=== PATIENT | male | born 1960 | race Two or more races ===

== ENCOUNTER 2018-07-26 22:18 | Emergency (ER) | payer OTHER ==
[~2018-07-26] VITALS: Ht 172.7 cm; Wt 89.4 kg
--- NOTE | 2018-07-26 22:30 | NUR ---
ADMITTED TO ER-RM 1A VIA EMERGENCY R MEDICAL RESPONSE S/P WITNESSED SEIZURE. SEIZURE PRECAUTION APPLIED ON BOTH SIDERAILS. DR MANCIA CAME & EVALUATED PT. W/ ORDERS.
[2018-07-26] MEDS ORDERED: ATOR80TA PO (22:36)
[2018-07-26] MEDS ORDERED: LAMO150T PO (22:36)
[2018-07-26] MEDS ORDERED: [UNRECOGNIZED DRUG - CODE] PO (22:36)
[2018-07-26] MEDS ORDERED: ZONI100C42 PO ×2 (22:36)
[2018-07-26] MEDS ORDERED: CLON1TAB PO (22:36)
[2018-07-26] MEDS ORDERED: DOCU-141 PO (22:39)
[2018-07-26] MEDS ORDERED: HYDR5TAB PO (22:39)
[2018-07-26] MEDS ORDERED: ASPI81TA31 PO (22:39)
[2018-07-26] MEDS ORDERED: HYDR10TA PO (22:39)
[2018-07-26] MEDS ORDERED: IBUP-1955 PO (22:39)
[2018-07-26] MEDS ORDERED: MECL12.582 PO (22:39)
[2018-07-26 23:21] LABS: BASOPHILS % (AUTO) 0.4 % (0.0-2.0); EOSINOPHILS # (AUTO) 0.1 K/uL (0.0-0.7); EOSINOPHILS % (AUTO) 1.1 % (0.0-7.0); HEMATOCRIT 43.2 % (36.7-47.1); LYMPHOCYTES % (AUTO) 14.1 % (20.5-51.5); MEAN CORPUSCULAR HEMOGLOBIN 32.4 uug (23.8-33.4); MEAN CORPUSCULAR HGB CONC 35 g/dL (32.5-36.3); MEAN CORPUSCULAR VOLUME 93.3 fL (73.0-96.2); MONOCYTES # (AUTO) 0.6 K/uL (2.0-10.0); MONOCYTES % (AUTO) 8.8 % (0.0-11.0); NEUTROPHILS # (AUTO) 5.1 K/uL (1.8-8.9); NEUTROPHILS % (AUTO) 75.6 % (38.5-71.5); PLATELET COUNT (AUTO) 82 K/uL (152-348); RED BLOOD CELL COUNT(AUTO) 4.63 MIL/uL (4.06-5.63); WHITE BLOOD COUNT (AUTO) 6.7 K/uL (3.6-10.2)
[2018-07-26 23:22] LABS: CREATININE 1.5 mg/dL (0.6-1.3); POTASSIUM 4.3 mmol/L (3.5-5.1)
[2018-07-26 23:28] LABS: BILIRUBIN,DIRECT 0.1 mg/dL (0.0-0.2); BILIRUBIN,TOTAL 0.4 mg/dL (0.2-1.0); TOTAL PROTEIN, SERUM 7.2 g/dL (6.4-8.2)
[2018-07-27] MEDS ORDERED: DEXAMETHASONE SOD PHOSPHATE 10 MG INJ IV ONE (00:45)
[2018-07-27] MEDS ORDERED: VANCOMYCIN IV 200 ML IV ONE (00:45)
[2018-07-27] MEDS ORDERED: CEFTRIAXONE 2 G in IV DEXTROSE 5% 100 ML IV ONE (00:45)
[2018-07-27] MEDS ORDERED: LORAZEPAM 2 MG/1 ML VIAL ONE (00:50)
[2018-07-27] MEDS ORDERED: CEFTRIAXONE 1 G VIAL ONE (00:54)
--- NOTE | 2018-07-27 00:55 | NUR ---
LUMBAR PUNCTURE DONE & SENT SPECIMEN TO LAB.
[2018-07-27] MEDS ORDERED: DEXAMETHASONE SOD PHOSPHATE 10 MG INJ ONE (00:57)
--- NOTE | 2018-07-27 00:58 | NUR ---
Called [facility]anny for kit
[2018-07-27] MEDS ORDERED: LORAZEPAM 2 MG/1 ML VIAL IV ONE (01:00)
[2018-07-27] MEDS ORDERED: VANCOMYCIN IV 200 ML ONE (01:05)
[2018-07-27 02:19] LABS: CSF GLUCOSE 56 mg/dL (40-70); CSF PROTEIN 64 mg/dL (15-45)
[2018-07-27] MEDS ORDERED: LIDOCAINE 2% (UROJET) 10 ML JELLY MM ONE ×2 (02:21→03:45)
[2018-07-27 03:33] LABS: *BILIRUBIN,URIN NEGATIVE (NEGATIVE); *BLOOD, URINE Trace-intact (NEGATIVE); *CLARITY,URINE CLEAR (CLEAR); *COLOR,URINE YELLOW (YELLOW); *KETONES,URINE NEGATIVE (NEGATIVE); *UROBILINOGEN,URINE 0.2 E.U./dl (NORMAL); LEUKOCYTE ESTERASE ,URINE NEGATIVE (NEGATIVE); NITRITE, URINE NEGATIVE (NEGATIVE); PH,URINE 7.5 (5.0-8.0); UGLUCOSE NEGATIVE (NEGATIVE)
[2018-07-27 03:40] LABS: BACTERIA,URINE NONE SEEN /HPF (NONE SEEN); SQUAMOUS EPITHELIAL CELL,UR FEW /HPF (NONE SEEN); WBC,URINE 0-3 /HPF (0-3)
[2018-07-27 03:41] LABS: SPERM,URINE MANY /HPF (NONE SEEN)
[2018-07-27 03:45] LABS: *AMPHETAMINE, URINE NEGATIVE (NEGATIVE); *BARBITURATE, URINE NEGATIVE (NEGATIVE); *CANNABINOID, URINE NEGATIVE (NEGATIVE); *COCCAINE, URINE NEGATIVE (NEGATIVE); *OPIATE, URINE NEGATIVE (NEGATIVE); *PHENCYCLIDINE SCREEN,URINE NEGATIVE (NEGATIVE)
--- NOTE | 2018-07-27 03:51 | NUR ---
ABDALLA CATH INSERTED ASEPTICALLY W/ FR. # 18 W/ CLEAR URINE OUTPUT. SPECIMEN SENT TO LAB.
--- NOTE | 2018-07-27 04:10 | NUR ---
TEMP-100.8 ORALLY, TYLENOL 650 MG PO GIVEN ORDERED.
[2018-07-27] MEDS ORDERED: ACETAMINOPHEN 325 MG TABLET ONE (04:13)
[2018-07-27] MEDS ORDERED: ACETAMINOPHEN 325 MG TABLET PO ONE (04:15)
--- NOTE | 2018-07-27 04:25 | NUR ---
REPORT GIVEN TO SEMAJ ARVIZU RN, [facility], RM [phone].
--- NOTE | 2018-07-27 04:40 | NUR ---
TRANSFERED & DISCHARGED TO [facility] VIA [facility].
== END 2018-07-27 04:40 | disposition short-term general hospital (02) ==
LOC: ER 22:23
DX: R56.00 Simple febrile convulsions (principal); E78.5 Hyperlipidemia, unspecified; Z79.1 Long term (current) use of non-steroidal anti-inflammatories (NSAID); Z79.82 Long term (current) use of aspirin; Z79.899 Other long term (current) drug therapy
CPT/HCPCS: 36415 ×2; 62270; 70450; 71045; 80048; 80076; 80307; 81001; 82945; 82962; 83605; 84157; 85025; 85730; 87040 ×2; 87086; 87400; 89051; 93005; 96365; 96375; 99285; J0696; J1100; J2060; J3370; A4663; J3490

== ENCOUNTER 2018-09-03 08:15 | Emergency (ER) | payer OTHER ==
[~2018-09-03] VITALS: Ht 175.3 cm; Wt 79.4 kg
[~2018-09-03 08:15] MED LIST: ASPI81TA31 PO; ATOR80TA PO; CLON1TAB PO; DOCU-141 PO; HYDR10TA PO; HYDR5TAB PO; IBUP-1955 PO; LAMO150T PO; MECL12.582 PO; ZONI100C42 PO; [UNRECOGNIZED DRUG - CODE] PO
--- NOTE | 2018-09-03 08:24 | NUR ---
NO MED LIST/HX INFO SENT W/ PT.
[2018-09-03] MEDS ORDERED: IV NORMAL SALINE 1000 ML BAG IV ONE (08:30)
--- NOTE | 2018-09-03 08:30 | NUR ---
PATIENT IS AWAKE, ALERT, ORIENTED X4. HE HAS A COUGH. PLACED ON A MONITOR.
[2018-09-03 08:47] LABS: BASOPHILS % (AUTO) 0.4 % (0.0-2.0); EOSINOPHILS # (AUTO) 0.1 K/uL (0.0-0.7); EOSINOPHILS % (AUTO) 1.2 % (0.0-7.0); HEMATOCRIT 36.5 % (36.7-47.1); HEMOGLOBIN 12.4 g/dL (12.5-16.3); LYMPHOCYTES # (AUTO) 0.9 K/uL (20.0-40.0); LYMPHOCYTES % (AUTO) 13.5 % (20.5-51.5); MEAN CORPUSCULAR HEMOGLOBIN 31.5 uug (23.8-33.4); MEAN CORPUSCULAR HGB CONC 34 g/dL (32.5-36.3); MEAN CORPUSCULAR VOLUME 92.6 fL (73.0-96.2); MONOCYTES # (AUTO) 0.6 K/uL (2.0-10.0); MONOCYTES % (AUTO) 9.8 % (0.0-11.0); NEUTROPHILS # (AUTO) 4.8 K/uL (1.8-8.9); NEUTROPHILS % (AUTO) 75.1 % (38.5-71.5); PLATELET COUNT (AUTO) 65 K/uL (152-348); RED BLOOD CELL COUNT(AUTO) 3.94 MIL/uL (4.06-5.63); WHITE BLOOD COUNT (AUTO) 6.4 K/uL (3.6-10.2)
[2018-09-03 08:56] LABS: CREATININE 1.4 mg/dL (0.6-1.3); POTASSIUM 3.9 mmol/L (3.5-5.1)
[2018-09-03 09:05] LABS: LYMPHOCYTES % (MANUAL) 14 % (20-40); MONOCYTES % (MANUAL) 10 % (2-10); NEUTROPHILS % (MANUAL) 76 % (42-75)
[2018-09-03 09:09] LABS: BILIRUBIN,DIRECT 0.2 mg/dL (0.0-0.2); BILIRUBIN,TOTAL 0.5 mg/dL (0.2-1.0); TOTAL PROTEIN, SERUM 7.1 g/dL (6.4-8.2)
--- NOTE | 2018-09-03 09:15 | NUR ---
PATIENT IS AWAKE AND ALERT. AWAITING TEST RESULTS.
[2018-09-03] MEDS ORDERED: PIPERACILLIN SODIUM/TAZOBACTAM 3.375 G in IV DEXTROSE 5% 50 ML IV ONE (09:30)
[2018-09-03] MEDS ORDERED: AZITHROMYCIN IV 500 MG in IV DEXTROSE 5% 250 ML IV ONE (09:30)
[2018-09-03] MEDS ORDERED: PIPERACILLIN/TAZOBACTAM/D5W 50 ML IV ONE (09:45)
[2018-09-03] MEDS ORDERED: AZITHROMYCIN 500 MG VIAL IV ONE (10:16)
--- NOTE | 2018-09-03 10:35 | NUR ---
AWAITING TO HEAR FROM PATIENTS INSURANCE TO VERIFY (ADMISSION) HOSPITAL
--- NOTE | 2018-09-03 11:00 | NUR ---
PER INSURANCE, PATIENT TO GO TO [facility]. REPORT GIVEN TO SHIVA HUFF AT [facility]. PATIENT AWARE OF PENDING TRANSFER.
--- NOTE | 2018-09-03 12:04 | NUR ---
[facility] STAFF HERE TO TRANSPORT PATIENT TO [facility]. ALL COPIES OF TEST RESULTS AND MEDICATION ADMINISTRATION GIVEN. PATIENT IS AWAKE AND ALERT IN NO DISTRESSS. VITAL SIGNS STABLE AT [place].
== END 2018-09-03 12:19 | disposition short-term general hospital (02) ==
LOC: ER 08:15
DX: J18.9 Pneumonia, unspecified organism (principal); E78.5 Hyperlipidemia, unspecified; Z79.82 Long term (current) use of aspirin; Z79.1 Long term (current) use of non-steroidal anti-inflammatories (NSAID); Z79.899 Other long term (current) drug therapy; Y95 Nosocomial condition
CPT/HCPCS: 36415; 71045; 80048; 80076; 83605; 83880; 84484; 85025; 87040; 87400; 93005; 96365; 96366; 96367; 99285; J0456; J2543; 70030-TC; A4663; J7030; J7050

== ENCOUNTER 2019-07-30 21:30 | Inpatient (IN) | payer MEDICAID, OTHER ==
[~2019-07-30] VITALS: Ht 175.3 cm; Wt 74.4 kg
[2019-07-30] MEDS ORDERED: NOREPINEPHRINE BITARTRATE 4 MG/4 ML VIAL IV ONE ×2 (21:57→22:09)
--- NOTE | 2019-07-30 22:00 | NUR ---
Jin bautista in EDM - 07/31/19 at 0318 by BPARENTELA Levophed 8mg started on right groin central line. started at 2mcg/min. Titrated to 14mcg/min per protocol
--- NOTE | 2019-07-30 22:13 | NUR ---
CENTRAL LINE INITIATED BY ERMD, STERILE TECHNIQUE LEVOPHED DERIP STARTED
--- NOTE | 2019-07-30 22:20 | NUR ---
Levophed 8mg started on right groin central line. started at 2mcg/min. Titrated to 14mcg/min per protocol
[2019-07-30 22:26] LABS: CREATININE 3.5 mg/dL (0.6-1.3)
[2019-07-30] MEDS ORDERED: PIPERACILLIN SODIUM/TAZOBACTAM 3.375 G in IV DEXTROSE 5% 50 ML IV ONE (22:30)
[2019-07-30] MEDS ORDERED: IV NORMAL SALINE 1000 ML BAG IV ONE (22:30)
[2019-07-30 22:31] LABS: POTASSIUM 2.9 mmol/L (3.5-5.1)
[2019-07-30 22:32] LABS: BASOPHILS % (AUTO) 0.2 % (0.0-2.0); HEMATOCRIT 40.3 % (36.7-47.1); HEMOGLOBIN 13.8 g/dL (12.5-16.3); LYMPHOCYTES # (AUTO) 1.2 K/uL (20.0-40.0); LYMPHOCYTES % (AUTO) 8.2 % (20.5-51.5); MEAN CORPUSCULAR HEMOGLOBIN 32.8 uug (23.8-33.4); MEAN CORPUSCULAR HGB CONC 34 g/dL (32.5-36.3); MEAN CORPUSCULAR VOLUME 95.4 fL (73.0-96.2); MONOCYTES % (AUTO) 6.8 % (0.0-11.0); NEUTROPHILS # (AUTO) 12.5 K/uL (1.8-8.9); NEUTROPHILS % (AUTO) 84.8 % (38.5-71.5); PLATELET COUNT (AUTO) 59 K/uL (152-348); RED BLOOD CELL COUNT(AUTO) 4.22 MIL/uL (4.06-5.63); WHITE BLOOD COUNT (AUTO) 14.7 K/uL (3.6-10.2)
[2019-07-30 22:37] LABS: BILIRUBIN,DIRECT 0.4 mg/dL (0.0-0.2); BILIRUBIN,TOTAL 1.4 mg/dL (0.1-1.0)
--- NOTE | 2019-07-30 22:40 | NUR ---
CALLED [facility] FOR PANEL PLACEMENT
[2019-07-30] MEDS ORDERED: AZITHROMYCIN 500MG/ D5W 250ML IVPB **ER PYXIS ONLY IV ONE (22:59)
[2019-07-30] MEDS ORDERED: VANCOMYCIN HCL 500 MG VIAL ONE (22:59)
[2019-07-30 23:00] LABS: ABG BASE EXCESS -10.3 mmol/L; ABG HCO3 12.4 mmol/L; ABG PCO2 20.9 mmHg (35.0-45.0); ABG PH 7.392 (7.350-7.450); ABG PO2 66.6 mmHg (75.0-100.0); ABG SITE RIGHT BRACHIAL; ABG TOTAL HEMOGLOBIN 12.8 G/dL (13.5-18.0); COHb 1.3 % (0.5-1.5); MetHb 0.1 % (0.0-1.5); O2Hb 92.5 % (94.0-97.0); VENT MODE ROOM AIR
[2019-07-30] MEDS ORDERED: MAGNESIUM HYDROXIDE 30 ML LIQUID UDC PO PRN (23:00)
[2019-07-30] MEDS ORDERED: Z GUARD REMEDY PASTE 57 GM TUBE TOP PRN (23:00)
[2019-07-30] MEDS ORDERED: VANCOMYCIN 1G/D5W 200 ML PIGGYBACK IV ONE (23:00)
[2019-07-30] MEDS ORDERED: PIPERACILLIN/TAZOBACTAM/D5W 50 ML IV ONE (23:00)
[2019-07-30] MEDS ORDERED: NOREPINEPHRINE BITARTRATE 8 MG in IV DEXTROSE 5% 500 ML IV PRN (23:00)
[2019-07-30] MEDS ORDERED: AZITHROMYCIN IV 500 MG in IV DEXTROSE 5% 250 ML IV ONE (23:00)
[2019-07-30] MEDS ORDERED: OSELTAMIVIR PHOSPHATE 75 MG CAPSULE PO ONE (23:00)
[2019-07-30] MEDS ORDERED: PANTOPRAZOLE SODIUM 40 MG VIAL ONE (23:01)
[2019-07-30] MEDS: PANTOPRAZOLE SODIUM 40 MG VIAL IV SCH (23:07)
[2019-07-30 23:30] LABS: ETHANOL < 3 MG/DL (0-0)
--- NOTE | 2019-07-30 23:50 | NUR ---
Dr. Oliver at bedside. no further titration of levophed needed per
[2019-07-31] VITALS (68 sets, daily range): BP systolic 73–128; BP diastolic 42–74
[2019-07-31] MEDS ORDERED: PIPERACILLIN SODIUM/TAZOBACTAM 3.375 G in IV DEXTROSE 5% 50 ML IV SCH ×2
--- NOTE | 2019-07-31 00:10 | NUR ---
Pt. admitted to CCU , under care of Dr. CONTRERAS Belongs List completed
[2019-07-31] MEDS ORDERED: POTASSIUM CHLORIDE 20 MEQ TAB.PRT.SR PO ONE (00:30)
--- NOTE | 2019-07-31 01:40 | NUR ---
Received patient from the ER. Dx: Septic shock. Arrived in ER from board and care via rescue ambulance with persistent diarrhea x4 days with dizziness. He was found to have a BP of 63/36 on arrival in the ER. Hx: Seizures, Parkinson's disease, CVA, and HTN. Arrived in the ICU A/O x 3, calm and cooperative. BP 107/44 HR 107, RR 18, SpO2 98% room air, 98.58*F. Arrived with 18g peripheral IV left AC, 3-lumen central line right femoral. On Levophed 14mcg and vancomycin running. Zosyn and Azithromycin given in the ER. No dizziness or lightheadedness reported on arrival on unit. No bouts of diarrhea since arrival in the ER.
[2019-07-31] MEDS: NOREPINEPHRINE BITARTRATE 8 MG in IV DEXTROSE 5% 500 ML IV PRN ×4 (02:52→22:55)
[2019-07-31] MEDS ORDERED: POTASSIUM CHLORIDE 20 MEQ TAB.PRT.SR ONE (02:56)
--- NOTE | 2019-07-31 03:00 | NUR ---
Patient experienced a bout of vomiting, expelling about 400ml of yellow/brown fluid. No aspiration noted. PRN Ondansetron given. No adverse effects from the vomiting episode noted. patient cleaned and linens changed. NS IV fluids increased to 125ml/hour
[2019-07-31 03:06] LABS: BAND % (MANUAL) 20 % (0-10); LYMPHOCYTES % (MANUAL) 7 % (20-40); METAMYELOCYTES % 2 % (0-1); MONOCYTES % (MANUAL) 5 % (2-10); NEUTROPHILS % (MANUAL) 66 % (42-75)
[2019-07-31] MEDS: ONDANSETRON 4 MG/2 ML VIAL IV PRN ×2 (03:09→08:24)
[2019-07-31] MEDS: IV NS 1000 ML 1,000 ML IV PRN ×2 (03:09→21:35)
--- NOTE | 2019-07-31 04:30 | NUR ---
TEMP-100.5 ORALLY, CALLED MIRYAM BATISTA W/ ORDER.
--- NOTE | 2019-07-31 04:45 | NUR ---
COOLING MEASURES GIVEN FOR ELEVATED TEMP.
[2019-07-31] MEDS ORDERED: PIPERACILLIN SODIUM/TAZOBACTAM 3.375 G in IV DEXTROSE 5% 50 ML IV ONE (05:00)
[2019-07-31] MEDS ORDERED: PIPERACILLIN/TAZOBACTAM/D5W 50 ML IV ONE (05:01)
[2019-07-31 05:27] LABS: BASOPHILS % (AUTO) 0.2 % (0.0-2.0); HEMATOCRIT 36.3 % (36.7-47.1); HEMOGLOBIN 12.7 g/dL (12.5-16.3); MEAN CORPUSCULAR HEMOGLOBIN 32.8 uug (23.8-33.4); MEAN CORPUSCULAR HGB CONC 35 g/dL (32.5-36.3); MEAN CORPUSCULAR VOLUME 93.5 fL (73.0-96.2); MONOCYTES % (AUTO) 5.1 % (0.0-11.0); NEUTROPHILS # (AUTO) 17.9 K/uL (1.8-8.9); NEUTROPHILS % (AUTO) 89.7 % (38.5-71.5); PLATELET COUNT (AUTO) 60 K/uL (152-348); RED BLOOD CELL COUNT(AUTO) 3.88 MIL/uL (4.06-5.63); WHITE BLOOD COUNT (AUTO) 19.9 K/uL (3.6-10.2)
[2019-07-31] MEDS ORDERED: ACETAMINOPHEN 650 MG SUPP.RECT RC PRN (06:00)
[2019-07-31 06:31] LABS: THYROID STIMULATING HORMONE 1.374 mIU/mL (0.358-3.740)
--- NOTE | 2019-07-31 07:55 | NUR ---
Dr. Oliver here to see pt. Full report given. New orders received.
[2019-07-31 08:12] LABS: CREATININE 2.8 mg/dL (0.6-1.3); PHOSPHOROUS 3.2 mg/dL (2.5-4.9)
[2019-07-31 08:17] LABS: MAGNESIUM 1.2 mg/dL (1.8-2.4)
--- NOTE | 2019-07-31 08:21 | NUR ---
Spoke with Dr. Oliver regarding pt's critically low magnesium levels 1.2L. New orders received and carried out.
[2019-07-31] MEDS: MAGNESIUM SULFATE/D5W 100 ML IV SCH ×4 (08:26→12:01)
--- NOTE | 2019-07-31 09:17 | NUR ---
PATIENT PICKED UP BY OR NURSES TAKEN TO OR UNIT.
[2019-07-31] MEDS ORDERED: VANCOMYCIN IV 1,250 MG in IV DEXTROSE 5% 250 ML IV ONE ×2 (11:30→12:00)
--- NOTE | 2019-07-31 14:49 | NUR ---
CLINICAL PHARMACY NOTE: VANCOMYCIN PHARMACY TO DOSE Subjective: To start vancomycin in this 58 y/o male for indication of "documented infection" (sepsis). Objective: weight 73kg height 175cm BUN/SCr 53/3.5 (not on HD) wbc 19.9 temp 100.5 1.25gm vanco given in ER 07/31 @~0000 Random vanco level today's am labs: 14.3 Assessment/Plan As renal function is reduced, will dose per level for now until stabilized. Per today's random level, dosed another 1250mg vanco x 1 at 1200. Next random ordered with am labs tomorrow. Will check in am and re-dose as needed. Will follow
--- NOTE | 2019-07-31 14:51 | NUR ---
US tech here to see pt for 2D Echocardiogram.
[2019-07-31] MEDS: PIPERACILLIN/TAZOBACTAM/D5W 3.375 G in IV DEXTROSE 5% 50 ML IV SCH ×2 (15:05→21:40)
[2019-07-31] MEDS: AZITHROMYCIN 250 MG TABLET PO SCH (20:46)
[2019-07-31] MEDS: OSELTAMIVIR PHOSPHATE 75 MG CAPSULE PO SCH (20:46)
[2019-07-31] MEDS: METRONIDAZOLE 500 MG TABLET PO SCH (21:40)
[2019-08-01] VITALS (91 sets, daily range): BP systolic 83–163; BP diastolic 47–99
[2019-08-01] MEDS: ACETAMINOPHEN 325 MG TABLET PO PRN (01:28)
[2019-08-01] MEDS: HYDROCODONE/APAP 5-325MG TABLET PO PRN (03:30)
[2019-08-01 05:20] LABS: BASOPHILS % (AUTO) 0.2 % (0.0-2.0); EOSINOPHILS # (AUTO) 0.1 K/uL (0.0-0.7); EOSINOPHILS % (AUTO) 0.9 % (0.0-7.0); HEMATOCRIT 36.5 % (36.7-47.1); HEMOGLOBIN 12.9 g/dL (12.5-16.3); LYMPHOCYTES # (AUTO) 0.9 K/uL (20.0-40.0); LYMPHOCYTES % (AUTO) 7.9 % (20.5-51.5); MEAN CORPUSCULAR HEMOGLOBIN 33.7 uug (23.8-33.4); MEAN CORPUSCULAR HGB CONC 35 g/dL (32.5-36.3); MEAN CORPUSCULAR VOLUME 95.4 fL (73.0-96.2); MONOCYTES # (AUTO) 0.7 K/uL (2.0-10.0); MONOCYTES % (AUTO) 5.9 % (0.0-11.0); NEUTROPHILS # (AUTO) 10.1 K/uL (1.8-8.9); NEUTROPHILS % (AUTO) 85.1 % (38.5-71.5); PLATELET COUNT (AUTO) 70 K/uL (152-348); RED BLOOD CELL COUNT(AUTO) 3.83 MIL/uL (4.06-5.63); WHITE BLOOD COUNT (AUTO) 11.9 K/uL (3.6-10.2)
[2019-08-01] MEDS: PIPERACILLIN/TAZOBACTAM/D5W 3.375 G in IV DEXTROSE 5% 50 ML IV SCH ×2 (05:35→13:48)
[2019-08-01] MEDS: IV NORMAL SALINE 250 ML IV PRN (05:36)
[2019-08-01] MEDS: METRONIDAZOLE 500 MG TABLET PO SCH ×3 (05:45→20:59)
[2019-08-01] MEDS: IV NS 1000 ML 1,000 ML IV PRN ×2 (06:23→19:45)
[2019-08-01] MEDS: NOREPINEPHRINE BITARTRATE 8 MG in IV DEXTROSE 5% 500 ML IV PRN (06:50)
[2019-08-01 08:33] LABS: BILIRUBIN,DIRECT 0.3 mg/dL (0.0-0.2); BILIRUBIN,TOTAL 0.9 mg/dL (0.2-1.0); CREATININE 1.9 mg/dL (0.6-1.3); MAGNESIUM 2.4 mg/dL (1.8-2.4); PHOSPHOROUS 1.9 mg/dL (2.5-4.9); POTASSIUM 3.8 mmol/L (3.5-5.1); TOTAL PROTEIN, SERUM 6.1 g/dL (6.4-8.2); VANCOMYCIN,RANDOM 13.6 ug/mL (18.0-26.0)
[2019-08-01] MEDS: PANTOPRAZOLE SODIUM 40 MG VIAL IV SCH (09:08)
[2019-08-01] MEDS ORDERED: VANCOMYCIN IV 1,250 MG in IV DEXTROSE 5% 250 ML IV ONE (10:00)
[2019-08-01] MEDS ORDERED: MECLIZINE HCL 12.5 MG TABLET PO PRN (13:00)
[2019-08-01] MEDS ORDERED: IBUPROFEN 600 MG TABLET PO SCH (13:00)
[2019-08-01] MEDS: NOREPINEPHRINE BITARTRATE 16 MG in IV DEXTROSE 5% 500 ML IV PRN (13:49)
--- NOTE | 2019-08-01 14:06 | NUR ---
CLINICAL PHARMACY NOTE: VANCOMYCIN PHARMACY TO DOSE Subjective: To continue vancomycin in this 58 y/o male for indication of "documented infection" (sepsis). Objective: weight 73kg height 175cm BUN/SCr 22/1.9 (not on HD) wbc 11.9 temp 98.8 1.25gm vanco given in ER 07/31 @~0000 Random vanco level 2/7 am labs: 14.3 Random Vanco level 2/8 am labs: 13.6 Assessment/Plan Since Vancomycin level is under 20, Vancomycin 1250mg IV x1 was given today at 1000. Will continue to dose per fall-off random level since renal function is still unstable. Next level is on order for tomorrow am with am labs. Will follow the level for further dosing.
[2019-08-01] MEDS ORDERED: NEUTRA PHOS PACKET PO SCH (15:15)
[2019-08-01] MEDS ORDERED: MECLIZINE HCL 25 MG TABLET PO PRN (16:00)
[2019-08-01] MEDS ORDERED: LAMOTRIGINE 300 MG PO SCH (17:00)
[2019-08-01] MEDS: LAMOTRIGINE 100 MG TABLET PO SCH ×2 (17:11→20:52)
[2019-08-01] MEDS: CEFEPIME HCL 1 G in IV DEXTROSE 5% 50 ML IV SCH (20:00)
[2019-08-01] MEDS: AZITHROMYCIN 250 MG TABLET PO SCH (20:48)
[2019-08-01] MEDS: ATORVASTATIN 40 MG TABLET PO SCH (20:48)
[2019-08-01] MEDS: CLONAZEPAM 1 MG TABLET PO SCH (20:48)
[2019-08-01] MEDS: OSELTAMIVIR PHOSPHATE 75 MG CAPSULE PO SCH (20:51)
[2019-08-01] MEDS: TERAZOSIN 1 MG CAPSULE PO SCH (20:54)
[2019-08-01] MEDS: HYDROCORTISONE 10 MG TABLET PO SCH (20:55)
[2019-08-01] MEDS: ZONISAMIDE 100 MG CAPSULE PO SCH (20:56)
[2019-08-01] MEDS ORDERED: Medication Not On Formulary EA (Lamotrigine 150 MG) PO SCH (21:00)
[2019-08-01] MEDS ORDERED: Medication Not On Formulary EA (Atorvastatin Calcium (Lipitor) 80 MG) PO SCH (21:00)
[2019-08-01] MEDS: ONDANSETRON 4 MG/2 ML VIAL IV PRN (22:02)
[2019-08-02] VITALS (90 sets, daily range): BP systolic 72–137; BP diastolic 22–91
[2019-08-02] MEDS: IV NORMAL SALINE 250 ML IV PRN (03:42)
[2019-08-02] MEDS: IV NS 1000 ML 1,000 ML IV PRN ×3 (03:42→20:29)
[2019-08-02 04:41] LABS: BASOPHILS % (AUTO) 0.2 % (0.0-2.0); EOSINOPHILS # (AUTO) 0.1 K/uL (0.0-0.7); EOSINOPHILS % (AUTO) 0.9 % (0.0-7.0); HEMATOCRIT 35.1 % (36.7-47.1); HEMOGLOBIN 12.4 g/dL (12.5-16.3); LYMPHOCYTES # (AUTO) 0.5 K/uL (20.0-40.0); LYMPHOCYTES % (AUTO) 8.6 % (20.5-51.5); MEAN CORPUSCULAR HEMOGLOBIN 33.3 uug (23.8-33.4); MEAN CORPUSCULAR HGB CONC 36 g/dL (32.5-36.3); MEAN CORPUSCULAR VOLUME 93.9 fL (73.0-96.2); MONOCYTES # (AUTO) 0.4 K/uL (2.0-10.0); MONOCYTES % (AUTO) 7.5 % (0.0-11.0); NEUTROPHILS # (AUTO) 4.6 K/uL (1.8-8.9); NEUTROPHILS % (AUTO) 82.8 % (38.5-71.5); PLATELET COUNT (AUTO) 53 K/uL (152-348); RED BLOOD CELL COUNT(AUTO) 3.74 MIL/uL (4.06-5.63); WHITE BLOOD COUNT (AUTO) 5.5 K/uL (3.6-10.2)
[2019-08-02 04:51] LABS: CREATININE 1.4 mg/dL (0.6-1.3); MAGNESIUM 1.7 mg/dL (1.8-2.4); PHOSPHOROUS 2.4 mg/dL (2.5-4.9); VANCOMYCIN,RANDOM 13.2 ug/mL (18.0-26.0)
[2019-08-02 05:18] LABS: LYMPHOCYTES % (MANUAL) 7 % (20-40); MONOCYTES % (MANUAL) 6 % (2-10); NEUTROPHILS % (MANUAL) 87 % (42-75)
[2019-08-02] MEDS: CEFEPIME HCL 1 G in IV DEXTROSE 5% 50 ML IV SCH ×2 (06:26→18:48)
[2019-08-02] MEDS: PANTOPRAZOLE SODIUM 40 MG TABLET.DR PO SCH (06:27)
[2019-08-02] MEDS: METRONIDAZOLE 500 MG TABLET PO SCH ×3 (06:27→20:56)
[2019-08-02] MEDS ORDERED: VANCOMYCIN IV 1,250 MG in IV DEXTROSE 5% 250 ML IV ONE (09:00)
[2019-08-02] MEDS ORDERED: ASPIRIN 81 MG TAB.CHEW PO SCH (09:00)
[2019-08-02] MEDS: NOREPINEPHRINE BITARTRATE 16 MG in IV DEXTROSE 5% 500 ML IV PRN (09:41)
[2019-08-02] MEDS: HYDROCORTISONE 10 MG TABLET PO SCH ×4 (09:44→21:17)
[2019-08-02] MEDS: LAMOTRIGINE 100 MG TABLET PO SCH ×3 (09:45→21:38)
[2019-08-02] MEDS: ZONISAMIDE 100 MG CAPSULE PO SCH ×2 (09:46→20:59)
[2019-08-02] MEDS ORDERED: NEUTRA PHOS PACKET PO ONE (15:30)
[2019-08-02] MEDS: MAGNESIUM SULFATE/D5W 100 ML IV SCH ×2 (17:30→18:46)
--- NOTE | 2019-08-02 18:30 | NUR ---
NO SIGNIFICANT CHANGE OF PT'S STATUS ALL DAY. LEVOPHED IN PROGRESS.
[2019-08-02] MEDS: AZITHROMYCIN 250 MG TABLET PO SCH (20:54)
[2019-08-02] MEDS: ATORVASTATIN 40 MG TABLET PO SCH (20:54)
[2019-08-02] MEDS: CLONAZEPAM 1 MG TABLET PO SCH (20:56)
[2019-08-02] MEDS: TERAZOSIN 1 MG CAPSULE PO SCH (20:57)
--- NOTE | 2019-08-02 21:00 | NUR ---
Contacted AM RN; HS dose of Cortef was inadvertently charted.
[2019-08-02] MEDS: OSELTAMIVIR PHOSPHATE 75 MG CAPSULE PO SCH (21:02)
[2019-08-02] MEDS ORDERED: LAMOTRIGINE 100 MG TABLET ONE (21:29)
[2019-08-03] VITALS (73 sets, daily range): BP systolic 80–111; BP diastolic 34–72
[2019-08-03] MEDS: IV NS 1000 ML 1,000 ML IV PRN ×3 (03:20→21:07)
[2019-08-03] MEDS: IV NORMAL SALINE 250 ML IV PRN (03:20)
[2019-08-03 05:02] LABS: BASOPHILS % (AUTO) 0.3 % (0.0-2.0); EOSINOPHILS # (AUTO) 0.1 K/uL (0.0-0.7); EOSINOPHILS % (AUTO) 1.4 % (0.0-7.0); HEMATOCRIT 33.6 % (36.7-47.1); LYMPHOCYTES # (AUTO) 0.4 K/uL (20.0-40.0); LYMPHOCYTES % (AUTO) 9.1 % (20.5-51.5); MEAN CORPUSCULAR HEMOGLOBIN 33.2 uug (23.8-33.4); MEAN CORPUSCULAR HGB CONC 36 g/dL (32.5-36.3); MEAN CORPUSCULAR VOLUME 93.1 fL (73.0-96.2); MONOCYTES # (AUTO) 0.4 K/uL (2.0-10.0); MONOCYTES % (AUTO) 9.6 % (0.0-11.0); NEUTROPHILS # (AUTO) 3.7 K/uL (1.8-8.9); NEUTROPHILS % (AUTO) 79.6 % (38.5-71.5); RED BLOOD CELL COUNT(AUTO) 3.61 MIL/uL (4.06-5.63); WHITE BLOOD COUNT (AUTO) 4.6 K/uL (3.6-10.2)
[2019-08-03 05:05] LABS: PLATELET COUNT (AUTO) 31 K/uL (152-348)
[2019-08-03 05:09] LABS: CREATININE 1.5 mg/dL (0.6-1.3); MAGNESIUM 1.9 mg/dL (1.8-2.4); PHOSPHOROUS 2.3 mg/dL (2.5-4.9); POTASSIUM 3.5 mmol/L (3.5-5.1)
[2019-08-03] MEDS: METRONIDAZOLE 500 MG TABLET PO SCH ×2 (06:24→14:55)
[2019-08-03] MEDS: PANTOPRAZOLE SODIUM 40 MG TABLET.DR PO SCH (06:24)
[2019-08-03] MEDS: CEFEPIME HCL 1 G in IV DEXTROSE 5% 50 ML IV SCH ×2 (07:31→20:58)
[2019-08-03] MEDS: ZONISAMIDE 100 MG CAPSULE PO SCH ×2 (08:57→21:11)
[2019-08-03] MEDS: LAMOTRIGINE 100 MG TABLET PO SCH ×3 (08:57→21:11)
[2019-08-03] MEDS: HYDROCORTISONE 10 MG TABLET PO SCH ×2 (08:58→21:10)
[2019-08-03] MEDS: NOREPINEPHRINE BITARTRATE 16 MG in IV DEXTROSE 5% 500 ML IV PRN (09:04)
[2019-08-03] MEDS: BENZOCAINE/MENTH/CETYLPYRD LOZENGE MM PRN (09:07)
[2019-08-03 10:54] LABS: BAND % (MANUAL) 1 % (0-10); EOSINOPHILS % (MANUAL) 2 % (0-8); LYMPHOCYTES % (MANUAL) 7 % (20-40); MONOCYTES % (MANUAL) 10 % (2-10); NEUTROPHILS % (MANUAL) 80 % (42-75)
--- NOTE | 2019-08-03 18:21 | NUR ---
Patient has been cooperative with care, no distress noted throughout shift. Patient successfully weaned off of levophed. Patient had one large loose bowel movement. Patient eating meals independently and tolerating well. Patient is on room air. Frequent repositioning and heels offloaded. Patients central line dressing changed.
--- NOTE | 2019-08-03 19:10 | NUR ---
RECEIVED PATIENT , AWAKE , ORIENTED ,DENIES PAIN , VOMITING SOB , LEVOPHED IS OFF , RIGHT GROIN CENTRAL INTACT ON RA , NO SEIZURE NOTED
--- NOTE | 2019-08-03 21:00 | NUR ---
NO SEIZURE NOTED , NO SOB , WATCHING TV COMFORTABLY , IV CENTRAL LINE INTACT
[2019-08-03] MEDS: CLONAZEPAM 1 MG TABLET PO SCH (21:09)
[2019-08-03] MEDS: ATORVASTATIN 40 MG TABLET PO SCH (21:10)
[2019-08-03] MEDS: AZITHROMYCIN 250 MG TABLET PO SCH (21:10)
[2019-08-03] MEDS: TERAZOSIN 1 MG CAPSULE PO SCH (21:13)
[2019-08-03] MEDS: OSELTAMIVIR PHOSPHATE 75 MG CAPSULE PO SCH (21:14)
--- NOTE | 2019-08-03 22:58 | NUR ---
patient was on levophed and stopped for now and vs being monitored Addendum: 08/03/19 at 2258 by RADHAMES SMITH RN Amended: Links added. Addendum: 08/03/19 at 2259 by RADHAMES SMITH RN Amended: Links added. Addendum: 08/03/19 at 2300 by RADHAMES SMITH RN Amended: Links added.
--- NOTE | 2019-08-03 22:59 | NUR ---
education given about vomiting , fluid intake , vs monitoring , verbalizes understanding Addendum: 08/03/19 at 2259 by RADHAMES SIMTH RN Amended: Links added. Addendum: 08/03/19 at 2300 by RADHAMES SMITH RN Amended: Links added.
--- NOTE | 2019-08-03 23:00 | NUR ---
NO SEIZURE NOTED , AFEBRILE , CENTRAL LINE INTACT
--- NOTE | 2019-08-03 23:00 | NUR ---
educated about medications availble whn needed and verbalizes understanin Addendum: 08/03/19 at 2300 by RADHAMES SMITH RN Amended: Links added.
--- NOTE | 2019-08-03 23:02 | NUR ---
being monitored for nausea and vomiting , fluid and snacks offered Addendum: 08/03/19 at 2302 by RADHAMES SMITH RN Amended: Links added.
--- NOTE | 2019-08-03 23:02 | NUR ---
vs and lab work being monitored along with fluid intake Addendum: 08/03/19 at 2302 by RADHAMES SMITH RN Amended: Links added.
[2019-08-04] VITALS (17 sets, daily range): BP systolic 98–119; BP diastolic 44–68
--- NOTE | 2019-08-04 01:32 | NUR ---
NO SEIZURE NOTED , NO NAUSEA AND VOMITING
[2019-08-04 05:29] LABS: BASOPHILS % (AUTO) 0.4 % (0.0-2.0); EOSINOPHILS # (AUTO) 0.1 K/uL (0.0-0.7); EOSINOPHILS % (AUTO) 1.3 % (0.0-7.0); HEMOGLOBIN 12.3 g/dL (12.5-16.3); MONOCYTES # (AUTO) 1.1 K/uL (2.0-10.0)
[2019-08-04 05:31] LABS: HEMATOCRIT 34.6 % (36.7-47.1); LYMPHOCYTES # (AUTO) 1.1 K/uL (20.0-40.0); MEAN CORPUSCULAR HEMOGLOBIN 34.2 uug (23.8-33.4); MEAN CORPUSCULAR HGB CONC 36 g/dL (32.5-36.3); MEAN CORPUSCULAR VOLUME 96.1 fL (73.0-96.2); MONOCYTES % (AUTO) 12.5 % (0.0-11.0); NEUTROPHILS # (AUTO) 6.7 K/uL (1.8-8.9); NEUTROPHILS % (AUTO) 73.8 % (38.5-71.5); WHITE BLOOD COUNT (AUTO) 9.1 K/uL (3.6-10.2)
[2019-08-04 05:55] LABS: CREATININE 1.6 mg/dL (0.6-1.3); MAGNESIUM 1.7 mg/dL (1.8-2.4); PHOSPHOROUS 2.2 mg/dL (2.5-4.9); POTASSIUM 3.8 mmol/L (3.5-5.1)
[2019-08-04 06:00] LABS: PLATELET COUNT (AUTO) 29 K/uL (152-348)
--- NOTE | 2019-08-04 06:00 | NUR ---
no seizure intact , awake oriented , able to follow command
--- NOTE | 2019-08-04 06:15 | NUR ---
WAS CALLED LEFT A MESSAGE ABOUT LOW PLATELET , NO CALL BACK WILL ENDORSE TO DAY SHIFT
[2019-08-04] MEDS: CEFEPIME HCL 1 G in IV DEXTROSE 5% 50 ML IV SCH ×2 (06:35→20:43)
[2019-08-04] MEDS: IV NS 1000 ML 1,000 ML IV PRN (06:36)
[2019-08-04] MEDS: PANTOPRAZOLE SODIUM 40 MG TABLET.DR PO SCH (06:37)
--- NOTE | 2019-08-04 07:20 | NUR ---
Received report from shift mechanic nurse, patient in bed resting, in no distress at this time, bed in low position, side rails up and padded for seizure precautions. Patient is on room air and iv fluids infusing at 125cc/hr. Will continue to monitor.
[2019-08-04] MEDS: HYDROCORTISONE 10 MG TABLET PO SCH ×2 (08:37→20:46)
[2019-08-04] MEDS: LAMOTRIGINE 100 MG TABLET PO SCH ×3 (08:38→20:58)
[2019-08-04] MEDS: ZONISAMIDE 100 MG CAPSULE PO SCH ×2 (08:39→20:44)
--- NOTE | 2019-08-04 12:10 | NUR ---
US liver performed.
[2019-08-04] MEDS: POTASSIUM PHOSPHATE MM 5 MMOL in IV DEXTROSE 5% 100 ML IV SCH ×2 (13:26→15:28)
[2019-08-04] MEDS ORDERED: MAGNESIUM OXIDE 400 MG TABLET PO ONE (15:00)
--- NOTE | 2019-08-04 16:01 | NUR ---
Patient transferred to chair, unsteady and weak, unable to ambulate independently.
--- NOTE | 2019-08-04 18:00 | NUR ---
Patient seen by Dr. Oconnell.
[2019-08-04] MEDS: IV NORMAL SALINE 250 ML IV PRN (18:09)
--- NOTE | 2019-08-04 19:08 | NUR ---
Patient has been cooperative with care, no distress noted throughout shift, all needs met. Patient has been hemodynamically stable, no fevers. One bowel movement throughout shift. Patient tolerating soft diet.
--- NOTE | 2019-08-04 19:15 | NUR ---
RECEIVED PATIENT EATING DINNER , NO ASPIRATION , SOB , RIGHT CENTRAL LINE INTACT AND FLUSHING ON RA
[2019-08-04] MEDS: ATORVASTATIN 40 MG TABLET PO SCH (20:44)
[2019-08-04] MEDS: TERAZOSIN 1 MG CAPSULE PO SCH (20:44)
[2019-08-04] MEDS: OSELTAMIVIR PHOSPHATE 75 MG CAPSULE PO SCH (20:45)
[2019-08-04] MEDS: AZITHROMYCIN 250 MG TABLET PO SCH (20:45)
[2019-08-04] MEDS: CLONAZEPAM 1 MG TABLET PO SCH (20:48)
--- NOTE | 2019-08-04 21:17 | NUR ---
PATIENT IS EDUCATED ABOUT FLUID INTAKE , BLEEDING SIGNS AND SYMPTOMS , PNA , NEEDS REINFORCEMENT , PATIENT HAS PERIODS OF FORGETFULLNES Addendum: 08/04/19 at 2117 by RADHAMES SMITH RN Amended: Links added.
--- NOTE | 2019-08-04 21:19 | NUR ---
PATIENT HAS PAIN MEDICATION WHEN NEEDED , PATIENT WAS NOTIFIED Addendum: 08/04/19 at 2119 by RADHAMES SMITH RN Amended: Gayatri mak. Addendum: 08/04/19 at 2120 by RADHAMES SMITH RN Amended: Gayatri mak. Addendum: 08/04/19 at 3 by RADHAMES SMITH RN Amended: Links added.
--- NOTE | 2019-08-04 21:21 | NUR ---
PATIENT EATS 75% TO 100 % OF MEAL WITH NO DIFFICULTY OR ASPIRATION Addendum: 08/04/19 at 2121 by RADHAMES SMITH RN Amended: Links added. Addendum: 08/04/19 at 2123 by RADHAMES SMITH RN Amended: Links added.
--- NOTE | 2019-08-04 21:23 | NUR ---
SKIN STATUS , FLUID INTAKE, NUTRITIONAL INTAKE AND VS ARE BEING MONITORED Addendum: 08/04/19 at 2123 by RADHAMES SMITH RN Amended: Links added.
--- NOTE | 2019-08-04 22:00 | NUR ---
RESTING COMFORTABLY , NO DISTRESS
[2019-08-05] VITALS (15 sets, daily range): BP systolic 95–130; BP diastolic 55–75
--- NOTE | 2019-08-05 02:23 | NUR ---
SLEEPING COMFORTABLY , AROUSABLE , NO SEIZURE NOTED , NO SOB
[2019-08-05 04:58] LABS: LYMPHOCYTES # (AUTO) 0.7 K/uL (20.0-40.0); MONOCYTES # (AUTO) 0.8 K/uL (2.0-10.0); NEUTROPHILS # (AUTO) 3.4 K/uL (1.8-8.9)
[2019-08-05 04:59] LABS: BASOPHILS % (AUTO) 0.5 % (0.0-2.0); EOSINOPHILS # (AUTO) 0.1 K/uL (0.0-0.7); EOSINOPHILS % (AUTO) 1.1 % (0.0-7.0); HEMATOCRIT 33.2 % (36.7-47.1); HEMOGLOBIN 11.9 g/dL (12.5-16.3); LYMPHOCYTES % (AUTO) 14.1 % (20.5-51.5); MEAN CORPUSCULAR HEMOGLOBIN 33.8 uug (23.8-33.4); MEAN CORPUSCULAR HGB CONC 36 g/dL (32.5-36.3); MEAN CORPUSCULAR VOLUME 94.7 fL (73.0-96.2); NEUTROPHILS % (AUTO) 68.3 % (38.5-71.5); WHITE BLOOD COUNT (AUTO) 4.9 K/uL (3.6-10.2)
[2019-08-05 05:05] LABS: PHOSPHOROUS 2.4 mg/dL (2.5-4.9); POTASSIUM 3.9 mmol/L (3.5-5.1)
[2019-08-05 05:17] LABS: PLATELET COUNT (AUTO) 11 K/uL (152-348)
[2019-08-05 05:18] LABS: BILIRUBIN,TOTAL 0.6 mg/dL (0.2-1.0); CREATININE 1.8 mg/dL (0.6-1.3); MAGNESIUM 2.3 mg/dL (1.8-2.4)
[2019-08-05 05:28] LABS: EOSINOPHILS % (MANUAL) 2 % (0-8); LYMPHOCYTES % (MANUAL) 17 % (20-40); MONOCYTES % (MANUAL) 13 % (2-10); NEUTROPHILS % (MANUAL) 68 % (42-75)
--- NOTE | 2019-08-05 05:43 | NUR ---
DR OSMANI ONTIVEROS WAS CALLED AND NOTIFIED OF RECENT LAB WORK PARTICULARLY PLATELET AND SWELLING OF THE LEFT LEG , ORDERS RECEIVED
[2019-08-05] MEDS: CEFEPIME HCL 1 G in IV DEXTROSE 5% 50 ML IV SCH ×2 (06:12→20:11)
[2019-08-05] MEDS: PANTOPRAZOLE SODIUM 40 MG TABLET.DR PO SCH (06:14)
--- NOTE | 2019-08-05 06:57 | NUR ---
AWAKE , FOLLOWS COMMAND , CENTRAL LINE INTACT , ON RA , NO SEIZURE NOTED , NO BLEEDING
[2019-08-05] MEDS: HYDROCORTISONE 10 MG TABLET PO SCH ×2 (08:16→20:51)
[2019-08-05] MEDS: ZONISAMIDE 100 MG CAPSULE PO SCH ×2 (08:18→20:52)
[2019-08-05] MEDS: LAMOTRIGINE 100 MG TABLET PO SCH ×3 (08:19→20:52)
--- NOTE | 2019-08-05 08:30 | NUR ---
Nephrology services, Dr. Eugene Barrett in the unit to see and examine patient.
[2019-08-05] MEDS ORDERED: NEUTRA PHOS PACKET PO ONE (09:00)
--- NOTE | 2019-08-05 09:23 | NUR ---
A call from Radiologist Dr. Curiel and reports of "non-occlusive thrombus on the RCF vein" as stated results will be posted and faxed to the unit. Attending physician Dr. Oconnell notified.
[2019-08-05 16:08] LABS: *BILIRUBIN,URIN NEGATIVE (NEGATIVE); *BLOOD, URINE 2+ (NEGATIVE); *CLARITY,URINE CLEAR (CLEAR); *COLOR,URINE YELLOW (YELLOW); *KETONES,URINE NEGATIVE (NEGATIVE); *UROBILINOGEN,URINE 0.2 E.U./dl (NORMAL); LEUKOCYTE ESTERASE ,URINE NEGATIVE (NEGATIVE); NITRITE, URINE NEGATIVE (NEGATIVE); UGLUCOSE NEGATIVE (NEGATIVE)
[2019-08-05 16:13] LABS: BACTERIA,URINE NONE SEEN /HPF (NONE SEEN); SQUAMOUS EPITHELIAL CELL,UR FEW /HPF (NONE SEEN); WBC,URINE 0-3 /HPF (0-3)
[2019-08-05 16:26] LABS: *CREATININE,URINE 288.5 mg/dL (30-125); *URINE TOTAL PROTEIN RANDOM 79.9 mg/dL (<150/24HR)
--- NOTE | 2019-08-05 17:35 | NUR ---
Attending physician, Dr. Ferrer in the unit to see and examine patient, full report given, and incapacitated consent signed by Md. at this time, been hin the 2nd physician to sign.
--- NOTE | 2019-08-05 18:53 | NUR ---
Oncology services, Dr. Saucedo in the unit to see and examine patient, full report given.
--- NOTE | 2019-08-05 19:21 | NUR ---
received awake , no sob , platelet is running , central ine right groin intact , on ra . dr Saucedo oncologist is here to see patient
--- NOTE | 2019-08-05 19:26 | NUR ---
dinner is offered and accepted , eating with no difficulty
--- NOTE | 2019-08-05 19:40 | NUR ---
jojo delong , id is here to see patient and talked with dr juárez
--- NOTE | 2019-08-05 20:43 | NUR ---
platelet i stransfused , no reaction ,patient is awake and oriented , no sob
[2019-08-05] MEDS: TERAZOSIN 1 MG CAPSULE PO SCH (20:54)
[2019-08-05] MEDS: CLONAZEPAM 1 MG TABLET PO SCH (20:57)
--- NOTE | 2019-08-05 22:00 | NUR ---
dr Saucedo was called notified of results of dic panel and fibrinogen lab , received orders
--- NOTE | 2019-08-05 22:52 | NUR ---
patient is being fed and ensure is added once a day , weight and skin status is beng monitored Addendum: 08/05/19 at 2252 by RADHAMES SMITH RN Amended: Links added.
--- NOTE | 2019-08-05 22:56 | NUR ---
patient is being educated about blood being received and signs and symptoms to report for adverse reaction, reinforcement Addendum: 08/05/19 at 2256 by RADHAMES SMITH RN Amended: Links added.
--- NOTE | 2019-08-05 23:29 | NUR ---
platelet and plasma are being transfused , patient was notifie Addendum: 08/05/19 at 4481 by RADHAMES SMITH RN Amended: Links added.
--- NOTE | 2019-08-05 23:32 | NUR ---
patient was being monitored for fluid intake , and lab work Addendum: 08/05/19 at 2332 by RADHAMES SMITH RN Amended: Links added.
[2019-08-06] VITALS (18 sets, daily range): BP systolic 89–124; BP diastolic 58–99
--- NOTE | 2019-08-06 00:15 | NUR ---
fresh frozen plasma started ,patient is awake able to follow commnad , no sob , no seizure noted
--- NOTE | 2019-08-06 00:30 | NUR ---
first frozen plasma transfuse, no reactions , no sob
--- NOTE | 2019-08-06 00:30 | NUR ---
patient is informed of avaliable pain medication when needed Addendum: 08/06/19 at 0030 by RADHAMES SMITH RN Amended: Links added.
--- NOTE | 2019-08-06 02:03 | NUR ---
sleeping soundly , arousable , no distress , no sob , no seizure
--- NOTE | 2019-08-06 02:45 | NUR ---
second fresh frozen plasma transfuse, no reaction , no fever , no seizure noted
[2019-08-06 06:26] LABS: BASOPHILS % (AUTO) 0.5 % (0.0-2.0); EOSINOPHILS # (AUTO) 0.1 K/uL (0.0-0.7); EOSINOPHILS % (AUTO) 2.3 % (0.0-7.0); HEMATOCRIT 29.9 % (36.7-47.1); HEMOGLOBIN 10.6 g/dL (12.5-16.3); LYMPHOCYTES # (AUTO) 0.9 K/uL (20.0-40.0); LYMPHOCYTES % (AUTO) 16.8 % (20.5-51.5); MEAN CORPUSCULAR HEMOGLOBIN 34.3 uug (23.8-33.4); MEAN CORPUSCULAR HGB CONC 35 g/dL (32.5-36.3); MEAN CORPUSCULAR VOLUME 96.9 fL (73.0-96.2); MONOCYTES # (AUTO) 0.8 K/uL (2.0-10.0); MONOCYTES % (AUTO) 14.7 % (0.0-11.0); NEUTROPHILS # (AUTO) 3.5 K/uL (1.8-8.9); NEUTROPHILS % (AUTO) 65.7 % (38.5-71.5); RED BLOOD CELL COUNT(AUTO) 3.08 MIL/uL (4.06-5.63)
[2019-08-06 06:40] LABS: PLATELET COUNT (AUTO) 33 K/uL (152-348); WHITE BLOOD COUNT (AUTO) 5.3 K/uL (3.6-10.2)
--- NOTE | 2019-08-06 06:43 | NUR ---
SECOND FFP , TRANFUSED , NO REACTION , NO SOB , NO RASHES , NO FEVER , RIGHT GROIN CENTRAL LINE INTACT , SMILEY IC INTACT , FOLLOWS COMMAND ON RA
[2019-08-06 07:00] LABS: IRON, SERUM 34 ug/dL (50-175)
[2019-08-06 07:28] LABS: BILIRUBIN,TOTAL 0.5 mg/dL (0.2-1.0); MAGNESIUM 1.9 mg/dL (1.8-2.4); PHOSPHOROUS 3.2 mg/dL (2.5-4.9); POTASSIUM 3.6 mmol/L (3.5-5.1); TOTAL PROTEIN, SERUM 6.2 g/dL (6.4-8.2)
[2019-08-06 07:49] LABS: THYROID STIMULATING HORMONE 1.642 mIU/mL (0.358-3.740)
[2019-08-06] MEDS: HYDROCORTISONE 10 MG TABLET PO SCH ×2 (08:50→20:06)
[2019-08-06] MEDS: ZONISAMIDE 100 MG CAPSULE PO SCH ×2 (08:51→20:07)
[2019-08-06] MEDS: LAMOTRIGINE 100 MG TABLET PO SCH ×3 (08:52→20:06)
[2019-08-06 10:02] LABS: BAND % (MANUAL) 7 % (0-10); EOSINOPHILS % (MANUAL) 3 % (0-8); MONOCYTES % (MANUAL) 11 % (2-10); MYELOCYTES % 3 % (0-0); NEUTROPHILS % (MANUAL) 60 % (42-75)
[2019-08-06 10:03] LABS: LYMPHOCYTES % (MANUAL) 16 % (20-40)
--- NOTE | 2019-08-06 19:30 | NUR ---
patient went down to CT for CT of the head for AMS ,patient AAOX2 and verbalized understanding of the test denies pain or discomfort no respiratory distress noted .
--- NOTE | 2019-08-06 19:56 | NUR ---
came back from CT tolerated the test . connected back to monitors .
[2019-08-06] MEDS: TERAZOSIN 1 MG CAPSULE PO SCH (20:05)
[2019-08-06] MEDS: CLONAZEPAM 1 MG TABLET PO SCH (20:06)
--- NOTE | 2019-08-06 20:11 | NUR ---
ate 100 % of the dinner ,patient able to feed self ,due po medications given tolerated medication with water.
--- NOTE | 2019-08-06 23:22 | NUR ---
turned and reposition patient ,changed soiled linens and gown . lotion applied to back area . right leg swollen + dp and pt pulses good cms . RIGHT and LEFT leg elevated with pillow .
[2019-08-07] VITALS (7 sets, daily range): BP systolic 96–115; BP diastolic 53–67
--- NOTE | 2019-08-07 05:00 | NUR ---
patient had bm moderate in amt soft , brownish in color , changed soiled linens and gown . patient able to help in turning and repositioning ,voiding using the urinal .v/s wnl .no respiratory distress noted breathing even and unlabored .continue to monitor v/s and advised to call for help call rene placed with in reach .
--- NOTE | 2019-08-07 07:30 | NUR ---
Report received from [place].Pt remains awake,alert,oriented x3.Denies pain,discomfort.SR on monitor.No SOB noted.Right leg is swollen,elevated on pillow.Central line to right groin intact.Will continue to monitor.
[2019-08-07] MEDS: HYDROCORTISONE 10 MG TABLET PO SCH ×2 (08:26→20:20)
[2019-08-07] MEDS: LAMOTRIGINE 100 MG TABLET PO SCH ×3 (08:26→20:19)
[2019-08-07] MEDS: ZONISAMIDE 100 MG CAPSULE PO SCH ×2 (08:27→20:23)
[2019-08-07 10:00] LABS: EOSINOPHILS # (AUTO) 0.1 K/uL (0.0-0.7); EOSINOPHILS % (AUTO) 1.4 % (0.0-7.0); LYMPHOCYTES # (AUTO) 0.8 K/uL (20.0-40.0); LYMPHOCYTES % (AUTO) 12.2 % (20.5-51.5)
[2019-08-07 10:16] LABS: BILIRUBIN,TOTAL 0.4 mg/dL (0.2-1.0); CREATININE 1.8 mg/dL (0.6-1.3); MAGNESIUM 1.9 mg/dL (1.8-2.4); PHOSPHOROUS 3.1 mg/dL (2.5-4.9); TOTAL PROTEIN, SERUM 6.2 g/dL (6.4-8.2)
[2019-08-07 10:30] LABS: BASOPHILS % (AUTO) 0.5 % (0.0-2.0); HEMATOCRIT 30.4 % (36.7-47.1); HEMOGLOBIN 10.6 g/dL (12.5-16.3); MEAN CORPUSCULAR HEMOGLOBIN 33.9 uug (23.8-33.4); MEAN CORPUSCULAR HGB CONC 35 g/dL (32.5-36.3); MEAN CORPUSCULAR VOLUME 97.1 fL (73.0-96.2); MONOCYTES # (AUTO) 0.7 K/uL (2.0-10.0); MONOCYTES % (AUTO) 10.9 % (0.0-11.0); NEUTROPHILS # (AUTO) 5.1 K/uL (1.8-8.9); RED BLOOD CELL COUNT(AUTO) 3.13 MIL/uL (4.06-5.63)
[2019-08-07 10:32] LABS: PLATELET COUNT (AUTO) 38 K/uL (152-348); WHITE BLOOD COUNT (AUTO) 6.8 K/uL (3.6-10.2)
[2019-08-07 10:47] LABS: BAND % (MANUAL) 2 % (0-10); EOSINOPHILS % (MANUAL) 1 % (0-8); LYMPHOCYTES % (MANUAL) 13 % (20-40); METAMYELOCYTES % 7 % (0-1); MONOCYTES % (MANUAL) 6 % (2-10); MYELOCYTES % 2 % (0-0); NEUTROPHILS % (MANUAL) 68 % (42-75)
--- NOTE | 2019-08-07 11:00 | NUR ---
PT at bedside.Pt was sitting up in bed,tolerated well.
[2019-08-07 12:37] LABS: *BILIRUBIN,URIN NEGATIVE (NEGATIVE); *BLOOD, URINE 3+ (NEGATIVE); *CLARITY,URINE HAZY (CLEAR); *COLOR,URINE YELLOW (YELLOW); *KETONES,URINE NEGATIVE (NEGATIVE); *UROBILINOGEN,URINE 0.2 E.U./dl (NORMAL); LEUKOCYTE ESTERASE ,URINE NEGATIVE (NEGATIVE); NITRITE, URINE NEGATIVE (NEGATIVE); UGLUCOSE NEGATIVE (NEGATIVE)
[2019-08-07 12:38] LABS: RBC,URINE TNTC /HPF (0-3)
[2019-08-07 12:42] LABS: *CREATININE,URINE 156.8 mg/dL (30-125); WBC,URINE 0-3 /HPF (0-3)
[2019-08-07 12:43] LABS: BACTERIA,URINE NONE SEEN /HPF (NONE SEEN); MUCUS,URINE MODERATE /LPF (0-FEW); SQUAMOUS EPITHELIAL CELL,UR FEW /HPF (NONE SEEN)
--- NOTE | 2019-08-07 14:00 | NUR ---
Renal ultrasound done at bedside.
--- NOTE | 2019-08-07 18:07 | NUR ---
Seen,examined by ,updated on pt status.
--- NOTE | 2019-08-07 18:54 | NUR ---
Removed central line from right groin.Pt tolerated procedure well.No bleeding noted from groin.Pressure dressing applied.No Sob noted.Will continue to monitor.
[2019-08-07] MEDS: BENZOCAINE/MENTH/CETYLPYRD LOZENGE MM PRN (20:09)
[2019-08-07] MEDS: TERAZOSIN 1 MG CAPSULE PO SCH (20:22)
[2019-08-07] MEDS: CLONAZEPAM 1 MG TABLET PO SCH (20:26)
--- NOTE | 2019-08-07 20:30 | NUR ---
Dr Ferrer at bedside. Right leg swollen; elevated on pillows. Patient resting quietly. Remains telemetry status.
[2019-08-08] VITALS (7 sets, daily range): BP systolic 96–121; BP diastolic 46–69
[2019-08-08 05:30] LABS: EOSINOPHILS # (AUTO) 0.1 K/uL (0.0-0.7); HEMOGLOBIN 10.8 g/dL (12.5-16.3); MONOCYTES # (AUTO) 0.8 K/uL (2.0-10.0)
[2019-08-08 05:32] LABS: BASOPHILS % (AUTO) 0.1 % (0.0-2.0); MEAN CORPUSCULAR HEMOGLOBIN 33.8 uug (23.8-33.4); MEAN CORPUSCULAR HGB CONC 35 g/dL (32.5-36.3); MEAN CORPUSCULAR VOLUME 96.8 fL (73.0-96.2); MONOCYTES % (AUTO) 10.7 % (0.0-11.0); NEUTROPHILS # (AUTO) 5.7 K/uL (1.8-8.9); NEUTROPHILS % (AUTO) 75.2 % (38.5-71.5); WHITE BLOOD COUNT (AUTO) 7.6 K/uL (3.6-10.2)
[2019-08-08 05:39] LABS: PLATELET COUNT (AUTO) 38 K/uL (152-348)
[2019-08-08 05:55] LABS: BILIRUBIN,TOTAL 0.6 mg/dL (0.2-1.0); CREATININE 1.8 mg/dL (0.6-1.3); MAGNESIUM 1.9 mg/dL (1.8-2.4); POTASSIUM 4.1 mmol/L (3.5-5.1); TOTAL PROTEIN, SERUM 6.6 g/dL (6.4-8.2)
[2019-08-08 06:02] LABS: NEUTROPHILS % (MANUAL) 74 % (42-75)
[2019-08-08 06:03] LABS: LYMPHOCYTES % (MANUAL) 20 % (20-40); MONOCYTES % (MANUAL) 6 % (2-10)
[2019-08-08] MEDS: HYDROCORTISONE 10 MG TABLET PO SCH ×2 (08:08→20:56)
[2019-08-08] MEDS: LAMOTRIGINE 100 MG TABLET PO SCH ×3 (08:09→20:50)
[2019-08-08] MEDS: ZONISAMIDE 100 MG CAPSULE PO SCH ×2 (08:20→20:53)
--- NOTE | 2019-08-08 13:30 | NUR ---
Nephrology services, Dr. Knight in the unit to see and examine patient. Full report given.
--- NOTE | 2019-08-08 15:00 | NUR ---
Oncology services, Dr. juárez in the unit to see and examine patient.
--- NOTE | 2019-08-08 16:52 | NUR ---
Telephone report given to Arlin Warrne, all questions answered. pt. will be going via own bed.
--- NOTE | 2019-08-08 17:15 | NUR ---
58 YEARS OLD MALE RECEIVED TRANSFER FRO CCU BY BED TO ROOM 314 PATIENT IS AWAKE ALERT AND ORIENTED RESPONDED VERBALLY WHEN SPOKEN TO ON ROOM AIR WITH NO S/S OF SHORTNESS OF BREATH AT THIS TIME HL LEFT AC IS INTACT TELEMETRY MONITORING SR WITH NO ECTOPY AT THIS TIME PATIENT ORIENTED TO ROOM AND FACILITY PROTOCOL MADE COMFORTABLE AND WILL CONTINUE TO OBSERVE.
--- NOTE | 2019-08-08 19:50 | NUR ---
PATIENT ALERT VERBALLY RESPONSIVE, NO SOB NO CHEST PAIN. PATIENT TELE MONITOR SINUS RHYTHM SINUS TACHY UP TO 110. PATIENT HAS NO COMPLAIN OF PAIN AT THIS TIME, NO DIZZINESS, NO DIARRHEA NOTED, CALL LIGHT WITHIN REACH.
[2019-08-08] MEDS: CLONAZEPAM 1 MG TABLET PO SCH (20:50)
[2019-08-08] MEDS: TERAZOSIN 1 MG CAPSULE PO SCH (20:52)
[2019-08-09 00:54] VITALS: BP 92/58
[2019-08-09 04:39] VITALS: BP 96/51
--- NOTE | 2019-08-09 06:52 | NUR ---
PATIENT ALERT ORIENTED, NO SOB NO CHEST PAIN. CONT ON TELE MONITOR SINUS RHYTHM SINUS TACHY. PATIENT HAS NO COMPLAIN OF PAIN AT THIS TIME, CONT TO MONITOR.
--- NOTE | 2019-08-09 07:20 | NUR ---
RECEIVED PATIENT IN BED AWAKE ALERT AND ORIENTED BUT SEEMS SOMEWHAT FORGETFUL ON ROOM AIR WITH NO SHORTNESS OF BREATH TELE MONITORING IN PROGRESS WITH NO ECTOPY CALL LIGHT AND PERSONAL BELONGINGS ARE WITHIN EASY REACH MADE COMFORTABLE AND WILL CONTINUE TO OBSERVE.
[2019-08-09 07:57] VITALS: BP 97/49
[2019-08-09] MEDS: ZONISAMIDE 100 MG CAPSULE PO SCH ×2 (08:18→20:52)
[2019-08-09] MEDS: LAMOTRIGINE 100 MG TABLET PO SCH ×3 (08:18→20:52)
[2019-08-09] MEDS: HYDROCORTISONE 10 MG TABLET PO SCH ×2 (08:19→20:52)
[2019-08-09 10:59] LABS: BASOPHILS % (AUTO) 0.5 % (0.0-2.0); EOSINOPHILS # (AUTO) 0.1 K/uL (0.0-0.7); EOSINOPHILS % (AUTO) 0.8 % (0.0-7.0); HEMATOCRIT 31.1 % (36.7-47.1); HEMOGLOBIN 10.7 g/dL (12.5-16.3); LYMPHOCYTES % (AUTO) 13.2 % (20.5-51.5); MEAN CORPUSCULAR HEMOGLOBIN 33.1 uug (23.8-33.4); MEAN CORPUSCULAR HGB CONC 34 g/dL (32.5-36.3); MEAN CORPUSCULAR VOLUME 96.3 fL (73.0-96.2); MONOCYTES # (AUTO) 0.8 K/uL (2.0-10.0); MONOCYTES % (AUTO) 10.5 % (0.0-11.0); NEUTROPHILS # (AUTO) 5.5 K/uL (1.8-8.9); RED BLOOD CELL COUNT(AUTO) 3.23 MIL/uL (4.06-5.63); WHITE BLOOD COUNT (AUTO) 7.3 K/uL (3.6-10.2)
--- NOTE | 2019-08-09 11:02 | NUR ---
PATIENT SEEN AND EXAMINED BY DR GRECO WITH NEW ORDERS AND NOTED.
[2019-08-09 11:16] LABS: BILIRUBIN,TOTAL 0.6 mg/dL (0.2-1.0); CREATININE 1.8 mg/dL (0.6-1.3); MAGNESIUM 2.1 mg/dL (1.8-2.4); PHOSPHOROUS 3.7 mg/dL (2.5-4.9); POTASSIUM 4.2 mmol/L (3.5-5.1); TOTAL PROTEIN, SERUM 6.2 g/dL (6.4-8.2)
[2019-08-09 11:19] LABS: PLATELET COUNT (AUTO) 41 K/uL (152-348)
[2019-08-09 11:54] LABS: LYMPHOCYTES % (MANUAL) 9 % (20-40); MONOCYTES % (MANUAL) 8 % (2-10); NEUTROPHILS % (MANUAL) 83 % (42-75)
[2019-08-09 11:55] VITALS: BP 98/55
--- NOTE | 2019-08-09 15:00 | NUR ---
DR SUTTON HERE SEEN PATIENT WITH NO NEW ORDERS AT THIS TIME
[2019-08-09 15:46] VITALS: BP 144/77
--- NOTE | 2019-08-09 18:00 | NUR ---
RIGHT LEG REMAINS SWOLLEN ELEVATED ON THE PILLOW TO REDUCE SWELLING ALERT COOPERATIVE SEEMS TO UNDERSTAND BUT IS AT TIMES NOT SURE OF WHAT TO DO OR HOW TO HANDLE THINGS PATIENT REDIRECTED AND REORIENTED NEEDED MADE COMFORTABLE AND WILL CONTINUE TO OBSERVE.
--- NOTE | 2019-08-09 19:45 | NUR ---
RECEIVED PATIENT AWAKE IN BED. PATIENT DENIES PAIN OR SHORTNESS OF BREATH AT THE MOMENT. IV SITE ON LEFT AC 20G FLUSHING, PATENT, AND INTACT. RIGHT LOWER EXTREMITY SWOLLEN, ELEVATED ON PILLOW. SAFETY PRECAUTIONS IN PLACE. FALL PRECAUTIONS IN PLACE. WILL CONTINUE TO MONITOR PATIENT ACCORDINGLY.
[2019-08-09 20:26] VITALS: BP 97/55
[2019-08-09] MEDS: FERROUS SULFATE 325 MG TABEC PO SCH (20:52)
[2019-08-09] MEDS: CLONAZEPAM 1 MG TABLET PO SCH (20:52)
[2019-08-09] MEDS: TERAZOSIN 1 MG CAPSULE PO SCH (20:53)
[2019-08-10 00:38] VITALS: BP 99/57
[2019-08-10] MEDS: ACETAMINOPHEN 325 MG TABLET PO PRN (00:42)
[2019-08-10 04:26] LABS: ALBUMIN 2.8 g/dL (2.9-4.4); ALPHA-1-GLOBULIN 0.3 g/dL (0.0-0.4); ALPHA-2-GLOBULIN 0.7 g/dL (0.4-1.0); BETA GLOBULIN 0.8 g/dL (0.7-1.3); GAMMA GLOBULIN 0.9 g/dL (0.4-1.8); GLOBULIN, TOTAL 2.8 g/dL (2.2-3.9); M-SPIKE Not Observed g/dL (Not Observed)
[2019-08-10 05:06] VITALS: BP 99/44
--- NOTE | 2019-08-10 07:38 | NUR ---
PATIENT SLEPT INTERMITTENTLY THROUGHOUT THE NIGHT. PATIENT HAD FEVER OF 100.0 AT 0030, MEDICATED WITH TYLENOL. TEMPERATURE DECREASED TO 98.7 AT 0400. WILL ENDORSE ACCORDINGLY
--- NOTE | 2019-08-10 07:40 | NUR ---
RECEIVED IN BED AWAKE ALERT VERBALLY RESPONDED WHEN SPOKEN TO DENIES PAIN OR DISCOMFORTS AT THIS TIME ON ROOM AIR WITH NO SHORTNESS OF BREATH RIGHT LOWER EXT REMAIN SWOLLEN ELEVATED ON THE PILLOW CALL LIGHTS AND PERSONAL BELONGINGS ARE WITHIN EASY REACH MADE COMFORTABLE AND WILL CONTINUE TO OBSERVE.
[2019-08-10] MEDS: LAMOTRIGINE 100 MG TABLET PO SCH ×3 (08:11→20:10)
[2019-08-10] MEDS: ZONISAMIDE 100 MG CAPSULE PO SCH ×2 (08:11→20:11)
[2019-08-10] MEDS: FERROUS SULFATE 325 MG TABEC PO SCH ×2 (08:11→20:10)
[2019-08-10] MEDS: HYDROCORTISONE 10 MG TABLET PO SCH ×2 (08:12→20:10)
[2019-08-10 11:35] VITALS: BP 98/57
--- NOTE | 2019-08-10 14:00 | NUR ---
DR SUTTON HERE TO SEE PATIENT WITH NO NEW ORDERS AT THIS TIME
[2019-08-10 16:16] VITALS: BP 108/59
--- NOTE | 2019-08-10 18:22 | NUR ---
DR LUONG HERE TO SEE PATIENT AND THE PLAN IS THAT SHE WILL ORDER LABS FOR TOMORROW AND IF HIS PLATELETS ARE AT LEAST 50 WILL START HIM ON ANTICOAGULATION
--- NOTE | 2019-08-10 19:30 | NUR ---
RECEIVED PT AWAKE, ALERT AND ORIENTEDX3. PT IN NO ACUTE DISTRESS. IV INTACT. SAFETY AND COMFORT PROVIDED. WILL CONTINUE TO MONITOR.
[2019-08-10] MEDS: CLONAZEPAM 1 MG TABLET PO SCH (20:10)
[2019-08-10] MEDS: TERAZOSIN 1 MG CAPSULE PO SCH (20:11)
[2019-08-10 20:43] VITALS: BP 99/53
[2019-08-10] MEDS: HYDROCODONE/APAP 5-325MG TABLET PO PRN (23:33)
[2019-08-11 00:45] VITALS: BP 102/55
--- NOTE | 2019-08-11 06:24 | NUR ---
PT SLEPT INTERMITTENTLY. PT IN NO ACUTE DISTRESS. IV INTACT. PRESCRIBED MEDICATION GIVEN AND PT TOLERATED IT WELL. pt given norco at 2333h. pt tolerated it well. SAFETY AND COMFORT PROVIDED. ALL NEEDS ARE MET. WILL ENDORSE TO INCOMING NURSE FOR CONTINUITY OF CARE.
[2019-08-11 06:37] LABS: CREATININE 1.6 mg/dL (0.6-1.3); POTASSIUM 4.4 mmol/L (3.5-5.1)
[2019-08-11 06:43] LABS: BASOPHILS % (AUTO) 0.3 % (0.0-2.0); EOSINOPHILS # (AUTO) 0.1 K/uL (0.0-0.7); EOSINOPHILS % (AUTO) 0.9 % (0.0-7.0); HEMATOCRIT 30.4 % (36.7-47.1); HEMOGLOBIN 10.7 g/dL (12.5-16.3); LYMPHOCYTES # (AUTO) 0.7 K/uL (20.0-40.0); LYMPHOCYTES % (AUTO) 10.2 % (20.5-51.5); MEAN CORPUSCULAR HEMOGLOBIN 34.1 uug (23.8-33.4); MEAN CORPUSCULAR HGB CONC 35 g/dL (32.5-36.3); MEAN CORPUSCULAR VOLUME 96.8 fL (73.0-96.2); MONOCYTES # (AUTO) 0.7 K/uL (2.0-10.0); MONOCYTES % (AUTO) 9.7 % (0.0-11.0); NEUTROPHILS # (AUTO) 5.6 K/uL (1.8-8.9); NEUTROPHILS % (AUTO) 78.9 % (38.5-71.5); RED BLOOD CELL COUNT(AUTO) 3.14 MIL/uL (4.06-5.63); WHITE BLOOD COUNT (AUTO) 7.1 K/uL (3.6-10.2)
[2019-08-11 06:54] LABS: PLATELET COUNT (AUTO) 79 K/uL (152-348)
[2019-08-11 07:06] LABS: HEPATITIS B SURFACE AB Non Reactive (.)
--- NOTE | 2019-08-11 07:30 | NUR ---
PATIENT IS AWAKE ALERT AND ORIENTED STATED NEEDED TO BE CHANGED DUE TO BEING INCONTINENT RIGHT LOWER EXT SWOLLEN ENCOURAGED TO KEEP IT ELEVATED ON THE PILLOW AND EXPRESSED UNDERSTANDING.CALL LIGHTS AND PERSONAL BELONGINGS ARE WITHIN EASY REACH PATIENT INSTRUCTED ON NEED FOR STOOL SPECIMEN STATED WILL LET ME KNOW WHEN HE HAS TO MOVE HIS BOWEL.WILL CONTINUE TO OBSERVE
[2019-08-11] MEDS: FERROUS SULFATE 325 MG TABEC PO SCH ×2 (08:08→20:01)
[2019-08-11] MEDS: LAMOTRIGINE 100 MG TABLET PO SCH ×3 (08:08→20:03)
[2019-08-11] MEDS: HYDROCORTISONE 10 MG TABLET PO SCH ×2 (08:09→20:01)
[2019-08-11] MEDS: ZONISAMIDE 100 MG CAPSULE PO SCH ×2 (08:09→20:03)
[2019-08-11 10:36] LABS: BAND % (MANUAL) 1 % (0-10); LYMPHOCYTES % (MANUAL) 9 % (20-40); MONOCYTES % (MANUAL) 6 % (2-10); MYELOCYTES % 3 % (0-0); NEUTROPHILS % (MANUAL) 81 % (42-75)
[2019-08-11 11:30] VITALS: BP 97/44
--- NOTE | 2019-08-11 12:30 | NUR ---
NOTED HEPLOCK DISLODGED PATIENT STATED THAT HE REMOVED IT BECAUSE IT WAS BORDERING HIM ALTHOUGH HE HAS NO IV DRUGS AT THIS TIME HEPLOCK REINSERTED TO HIS RIGHT FOREARM WITH ONE ATTEMPT TOLERATED WELL.
[2019-08-11] MEDS: MAGNESIUM HYDROXIDE 30 ML LIQUID UDC PO PRN (13:15)
--- NOTE | 2019-08-11 15:10 | NUR ---
PLATELETS TODAY IS 79 CALLED VIDA SANDHU DNP LEFT HIM A MESSAGE RE PLAN ON ANTICOAGULATION.
[2019-08-11 15:45] VITALS: BP 98/53
[2019-08-11] MEDS ORDERED: RIVAROXABAN 10 MG TABLET PO SCH (18:30)
--- NOTE | 2019-08-11 18:45 | NUR ---
FOLLOW UP CALL TO VIDA SANDHU DNP STATED [place] WILL REVIEW THE PT INR CR ETC AND WILL PLACE ORDERS.
--- NOTE | 2019-08-11 19:30 | NUR ---
RECEIVED PT AWAKE, ALERT AND ORIENTEDX3. IN NO ACUTE DISTRESS. IV INTACT. PT COOPERATIVE WITH CARE. SAFETY AND COMFORT PROVIDED. WILL CONTINUE TO MONITOR.
[2019-08-11] MEDS: RIVAROXABAN 15 MG TABLET PO SCH (19:59)
[2019-08-11] MEDS: TERAZOSIN 1 MG CAPSULE PO SCH (20:02)
[2019-08-11] MEDS: CLONAZEPAM 1 MG TABLET PO SCH (20:03)
[2019-08-11 20:53] VITALS: BP 96/51
[2019-08-12 00:11] VITALS: BP 97/55
[2019-08-12] MEDS: ACETAMINOPHEN 325 MG TABLET PO PRN (00:50)
[2019-08-12] MEDS: MAGNESIUM HYDROXIDE 30 ML LIQUID UDC PO PRN (02:49)
[2019-08-12 04:00] VITALS: BP 99/59
--- NOTE | 2019-08-12 05:40 | NUR ---
PT SLEPT INTERMITTENTLY. PT IN NO ACUTE DISTRESS. IV INTACT. PRESCRIBED MEDICATION GIVEN AND PT TOLERATED IT WELL. PT GIVEN TYLENOL MEDICATION AND COOLING MEASURES FOR 99.6 TEMPERATURE. PT TEMPERATURE WENT DOWN TO 98.9. PT AFEBRILE. PT GIVEN MILK OF MAGNESIA AND PRUNE JUICE TO PROMOTE BOWEL MOVEMENT. DID FECAL IMPACTION BUT NO STOOL. SAFETY AND COMFORT PROVIDED. WILL ENDORSE TO INCOMING NURSE FOR CONTINUITY OF CARE.
[2019-08-12 06:03] LABS: CREATININE 1.7 mg/dL (0.6-1.3); MAGNESIUM 2.4 mg/dL (1.8-2.4); PHOSPHOROUS 2.9 mg/dL (2.5-4.9); POTASSIUM 4.7 mmol/L (3.5-5.1)
[2019-08-12 06:19] LABS: BASOPHILS % (AUTO) 0.4 % (0.0-2.0); EOSINOPHILS % (AUTO) 0.8 % (0.0-7.0); HEMATOCRIT 30.9 % (36.7-47.1); HEMOGLOBIN 10.8 g/dL (12.5-16.3); LYMPHOCYTES # (AUTO) 0.7 K/uL (20.0-40.0); LYMPHOCYTES % (AUTO) 12.1 % (20.5-51.5); MEAN CORPUSCULAR HEMOGLOBIN 34.2 uug (23.8-33.4); MEAN CORPUSCULAR HGB CONC 35 g/dL (32.5-36.3); MEAN CORPUSCULAR VOLUME 97.6 fL (73.0-96.2); MONOCYTES # (AUTO) 0.6 K/uL (2.0-10.0); MONOCYTES % (AUTO) 10.9 % (0.0-11.0); NEUTROPHILS # (AUTO) 4.4 K/uL (1.8-8.9); NEUTROPHILS % (AUTO) 75.8 % (38.5-71.5); PLATELET COUNT (AUTO) 84 K/uL (152-348); RED BLOOD CELL COUNT(AUTO) 3.17 MIL/uL (4.06-5.63); WHITE BLOOD COUNT (AUTO) 5.8 K/uL (3.6-10.2)
--- NOTE | 2019-08-12 08:00 | NUR ---
RECEIVED PATIENT RESTING IN BED. NO ACUTE DISTRESS OR SOB NOTED. RIGHT LOWER EXT SWOLLEN ENCOURAGED TO KEEP IT ELEVATED ON THE PILLOW AND EXPRESSED UNDERSTANDING.CALL LIGHT AND PERSONAL BELONGINGS ARE WITHIN EASY REACH PATIENT AND BAG HANGER INSTRUCTED ON NEED FOR STOOL SPECIMEN. PT ON TELEMETRY MONITORING SINUS RHYTHM. WILL CONTINUE TO MONITOR FOR SAFETY AND COMFORT.
[2019-08-12] MEDS: FERROUS SULFATE 325 MG TABEC PO SCH ×2 (10:09→21:22)
[2019-08-12] MEDS: LAMOTRIGINE 100 MG TABLET PO SCH ×3 (10:09→21:22)
[2019-08-12] MEDS: RIVAROXABAN 15 MG TABLET PO SCH ×2 (10:11→18:00)
[2019-08-12] MEDS: HYDROCORTISONE 10 MG TABLET PO SCH ×2 (10:11→21:24)
[2019-08-12] MEDS: ZONISAMIDE 100 MG CAPSULE PO SCH ×2 (10:14→21:22)
[2019-08-12 11:03] VITALS: BP 95/52
[2019-08-12 15:11] VITALS: BP 95/42
--- NOTE | 2019-08-12 18:00 | NUR ---
PT IN NO ACUTE DISTRESS. IV INTACT. NO SOB NOTED. PT DIET AND MED COMPLIANT. TELE SINUS RHYTHM. PRESCRIBED MEDICATION GIVEN AND PT TOLERATED IT WELL. . NO BM ON SHIFT. WILL ASK DR FOR ENEMA. PT AFEBRILE. SAFETY AND COMFORT PROVIDED. WILL ENDORSE TO INCOMING NURSE FOR CONTINUITY OF CARE.
--- NOTE | 2019-08-12 19:20 | NUR ---
DR. LUONG ORDERED ENEMA FOR PT . PT IN NO ACUTE DISTRESS. HANDS OF REPORT TO NANCY HUFF.
[2019-08-12 20:53] VITALS: BP 115/68
--- NOTE | 2019-08-12 20:58 | NUR ---
report received from night nurse.
[2019-08-12] MEDS ORDERED: FLEET ENEMA 133 ML BOTTLE RC ONE (21:00)
[2019-08-12] MEDS: CLONAZEPAM 1 MG TABLET PO SCH (21:22)
[2019-08-12] MEDS: TERAZOSIN 1 MG CAPSULE PO SCH (21:23)
[2019-08-13] VITALS: BP 120/68
[2019-08-13 04:00] VITALS: BP 101/62
--- NOTE | 2019-08-13 05:40 | NUR ---
PATIENT SLEPT INTERMITTENTLY. NO SIGNS OF ACUTE DISTRESS AND V/S STABLE THROUGHOUT SHIFT. AFEBRILE. SAFETY AND COMFORT MEASURERS PROVIDED. ALL NEEDS MED AND MEDICATIONS ADMINISTERED. STOOL COLLECTED AND SENT TO LAB. WILL CONTINUE TO MONITOR AND ENDORSE TO MORNING NURSE.
[2019-08-13 05:54] LABS: CREATININE 1.5 mg/dL (0.6-1.3); POTASSIUM 4.5 mmol/L (3.5-5.1)
[2019-08-13 06:00] LABS: BASOPHILS % (AUTO) 0.6 % (0.0-2.0); EOSINOPHILS # (AUTO) 0.1 K/uL (0.0-0.7); EOSINOPHILS % (AUTO) 1.4 % (0.0-7.0); HEMOGLOBIN 10.9 g/dL (12.5-16.3); LYMPHOCYTES # (AUTO) 0.8 K/uL (20.0-40.0); LYMPHOCYTES % (AUTO) 15.2 % (20.5-51.5); MEAN CORPUSCULAR HEMOGLOBIN 33.4 uug (23.8-33.4); MEAN CORPUSCULAR HGB CONC 35 g/dL (32.5-36.3); MEAN CORPUSCULAR VOLUME 94.9 fL (73.0-96.2); MONOCYTES # (AUTO) 0.7 K/uL (2.0-10.0); NEUTROPHILS # (AUTO) 3.7 K/uL (1.8-8.9); NEUTROPHILS % (AUTO) 69.8 % (38.5-71.5); PLATELET COUNT (AUTO) 81 K/uL (152-348); RED BLOOD CELL COUNT(AUTO) 3.27 MIL/uL (4.06-5.63); WHITE BLOOD COUNT (AUTO) 5.3 K/uL (3.6-10.2)
[2019-08-13 07:18] LABS: EOSINOPHILS % (MANUAL) 1 % (0-8); LYMPHOCYTES % (MANUAL) 16 % (20-40); MONOCYTES % (MANUAL) 13 % (2-10); NEUTROPHILS % (MANUAL) 70 % (42-75)
--- NOTE | 2019-08-13 08:00 | NUR ---
RECEIVED PATIENT RESTING IN BED. NO ACUTE DISTRESS OR SOB NOTED. RIGHT LOWER EXT SWOLLEN ENCOURAGED TO KEEP IT ELEVATED ON THE PILLOW AND EXPRESSED UNDERSTANDING.CALL LIGHT AND PERSONAL BELONGINGS ARE WITHIN EASY REACH. PT ON TELEMETRY MONITORING SINUS RHYTHM. WILL CONTINUE TO MONITOR FOR SAFETY AND COMFORT.
[2019-08-13 10:00] LABS: *OCCULT BLOOD STOOL NEGATIVE (NEGATIVE)
[2019-08-13] MEDS: RIVAROXABAN 15 MG TABLET PO SCH ×2 (10:03→17:59)
[2019-08-13] MEDS: HYDROCORTISONE 10 MG TABLET PO SCH (10:05)
[2019-08-13] MEDS: LAMOTRIGINE 100 MG TABLET PO SCH ×2 (10:09→17:58)
[2019-08-13] MEDS: FERROUS SULFATE 325 MG TABEC PO SCH (10:10)
[2019-08-13] MEDS: ZONISAMIDE 100 MG CAPSULE PO SCH (10:10)
[2019-08-13 11:12] VITALS: BP 95/55
[2019-08-13 15:12] VITALS: BP 93/48
--- NOTE | 2019-08-13 18:40 | NUR ---
ORDER FOR DISCHARGE RECEIVED. DISCHARGE INSTRUCTIONS PRINTED AND GIVEN TO JUANY SMITH RN. NO ACUTE DISTRESS NOTED. NO SOB NOTED. IV LINE STILL IN PT. JUANY TO REMOVE. BELONGINGS LIST SIGNED. BELONGINGS RETURNED. JUANY GIVEN TAXI VOUCHER FOR TAXI WHO WILL BE TAKING PT TO [facility] [address] [facility] [place] [facility] [id number] . JUANY TO CONTACT THO [facility] (WET END TESTER) TO CONFIRM THAT THEY WILL BE RECEIVING PT TODAY AT . DISCHARGE INSTRUCTIONS WILL BE GIVEN TO PT.
[2019-08-13 20:15] VITALS: BP 107/66
== END 2019-08-13 20:57 | disposition home health service (06) | DRG 720 ==
LOC: ER 21:34 → CCU 07-31 01:06 → MEDSURG3 08-08 17:17 → TELE3 08-08 17:21
PROVIDERS: ADMIT Student in an Organized Health Care Education/Training Program; ATTEND Student in an Organized Health Care Education/Training Program
PROC: 06HY33Z Insertion of Infusion Device into Lower Vein, Percutaneous Approach (ICD-10-PCS; principal; 2019-07-31)
PROC: 30233R1 Transfusion of Nonautologous Platelets into Peripheral Vein, Percutaneous Approach (ICD-10-PCS; 2019-08-05)
PROC: 30233K1 Transfusion of Nonautologous Frozen Plasma into Peripheral Vein, Percutaneous Approach (ICD-10-PCS; 2019-08-06)
DX: A41.9 Sepsis, unspecified organism (principal); J96.01 Acute respiratory failure with hypoxia; J69.0 Pneumonitis due to inhalation of food and vomit; E43 Unspecified severe protein-calorie malnutrition; N17.0 Acute kidney failure with tubular necrosis; R65.21 Severe sepsis with septic shock; J15.6 Pneumonia due to other Gram-negative bacteria; E87.2 Acidosis; G92 Toxic encephalopathy; D68.59 Other primary thrombophilia; E44.1 Mild protein-calorie malnutrition; D68.9 Coagulation defect, unspecified; E87.6 Hypokalemia; I82.411 Acute embolism and thrombosis of right femoral vein; K82.8 Other specified diseases of gallbladder; F01.50 Vascular dementia, unspecified severity, without behavioral disturbance, psychotic disturbance, mood disturbance, and anxiety; Z79.82 Long term (current) use of aspirin; I34.0 Nonrheumatic mitral (valve) insufficiency; N18.9 Chronic kidney disease, unspecified; K59.00 Constipation, unspecified; H91.90 Unspecified hearing loss, unspecified ear; E83.42 Hypomagnesemia; E78.5 Hyperlipidemia, unspecified; D69.6 Thrombocytopenia, unspecified; Z74.09 Other reduced mobility; A04.9 Bacterial intestinal infection, unspecified; Z86.73 Personal history of transient ischemic attack (TIA), and cerebral infarction without residual deficits; D64.9 Anemia, unspecified
CPT/HCPCS: 36415; 36600; 70030-TC; 70450; 71045; 76705; 76770; 82533; 83010; 83550; 83605; 83615; 83690; 83735; 84100; 84153; 84155; 84156; 84165; 84300; 84443; 85025; 85610; 85730; 86625; 86704; 86705; 86706; 86803; 86850; 86900; 86901; 87040; 87046; 87086; 87400; 93005; 93307; A4663; C9113; G0378; G0480; J0456; J0692; J2405; J2543; J3370; J3475; J3490; J7030; J7050; J7060; J8499; P9016-BL; P9017-BL; P9021; P9035-BL; Q0144

== ENCOUNTER 2020-01-27 21:21 | Emergency (ER) | payer OTHER ==
[~2020-01-27] VITALS: Ht 175.3 cm; Wt 75.3 kg
[~2020-01-27 21:21] MED LIST changes: -ASPI81TA31 PO; -ATOR80TA PO; +ERGO500040 PO; -IBUP-1955 PO; -LAMO150T PO; +LAMO150T6 PO; +MECL-182 PO; -MECL12.582 PO; +RIVA15TA PO; +TERA1CAP4 PO; -[UNRECOGNIZED DRUG - CODE] PO
[2020-01-27] MEDS ORDERED: levETIRAcetam IV 500 MG in IV DEXTROSE 5% 100 ML IV ONE (21:30)
[2020-01-27] MEDS ORDERED: LORAZEPAM 2 MG/1 ML VIAL IV ONE (21:30)
[2020-01-27] MEDS ORDERED: levETIRAcetam 500 MG/5 ML VIAL IV ONE (21:42)
[2020-01-27] MEDS ORDERED: LORAZEPAM 2 MG/1 ML VIAL ONE (21:43)
--- NOTE | 2020-01-27 21:45 | NUR ---
Dr. Lambert at bedside for MSE. Addendum: 01/27/20 at 2153 by AELIGIO [address] Lambert at bedside for MSE. Bilateral rails padded. Seizure precautions in place.
--- NOTE | 2020-01-27 21:50 | NUR ---
Pt down for CT.
[2020-01-27 21:59] LABS: BASOPHILS % (AUTO) 0.4 % (0.0-2.0); EOSINOPHILS # (AUTO) 0.1 K/uL (0.0-0.7); HEMATOCRIT 44.7 % (36.7-47.1); HEMOGLOBIN 15.3 g/dL (12.5-16.3); LYMPHOCYTES # (AUTO) 0.8 K/uL (20.0-40.0); LYMPHOCYTES % (AUTO) 16.8 % (20.5-51.5); MEAN CORPUSCULAR HEMOGLOBIN 32.9 uug (23.8-33.4); MEAN CORPUSCULAR HGB CONC 34 g/dL (32.5-36.3); MEAN CORPUSCULAR VOLUME 96.2 fL (73.0-96.2); MONOCYTES # (AUTO) 0.4 K/uL (2.0-10.0); MONOCYTES % (AUTO) 7.7 % (0.0-11.0); NEUTROPHILS # (AUTO) 3.5 K/uL (1.8-8.9); NEUTROPHILS % (AUTO) 73.1 % (38.5-71.5); PLATELET COUNT (AUTO) 141 K/uL (152-348); RED BLOOD CELL COUNT(AUTO) 4.65 MIL/uL (4.06-5.63); WHITE BLOOD COUNT (AUTO) 4.8 K/uL (3.6-10.2)
[2020-01-27 22:00] LABS: CARBON DIOXIDE 25 mmol/L (21-32); CHLORIDE 106 mmol/L (98-107); GLUCOSE 103 mg/dL (74-106); POTASSIUM 4.4 mmol/L (3.5-5.1); UREA NITROGEN, BLOOD 33 mg/dL (7-18)
[2020-01-27 22:05] LABS: ALANINE AMINOTRANSFERASE 32 U/L (16-63); ALKALINE PHOSPHATASE 93 U/L (50-136); ASPARTATE AMINOTRANSFERASE 26 U/L (15-37); BILIRUBIN,DIRECT 0.1 mg/dL (0.0-0.2); BILIRUBIN,TOTAL 0.3 mg/dL (0.2-1.0); ETHANOL < 3 MG/DL (0-0); TOTAL PROTEIN, SERUM 7.5 g/dL (6.4-8.2)
--- NOTE | 2020-01-27 22:12 | NUR ---
Pt back from CT.
--- NOTE | 2020-01-27 22:40 | NUR ---
Patient is ready to be admitted at this time with Dx: Seizures. Insurance is being contacted at this time by [employer]. Pending bed..
--- NOTE | 2020-01-27 23:31 | NUR ---
S/W Tanisha Liu [facility] Director Microbiology to provide clinicals. Will discuss with hospitalist and let us know.
--- NOTE | 2020-01-27 23:55 | NUR ---
Dr. Lambert on the line with [facility] .
--- NOTE | 2020-01-28 01:03 | NUR ---
F/up with [facility]. S/W Sarah, informed her of our transfer policy. Per her, they will get bed soon and will let us know right away.
--- NOTE | 2020-01-28 01:20 | NUR ---
Received call from [facility], that patient will be going to Bed 942-B. Number to give report: [phone]. Accepting MD is Dr. Gaona. [facility] will be picking up patient with ETA of 90 minutes. Pt made aware. No seizure episodes since in ER. Stable VS as recorded, and fall/safety precautions in place.
--- NOTE | 2020-01-28 01:44 | NUR ---
Currently on hold with [facility]. Pending receiving nurse to pick up driver phone, so report can be given.
--- NOTE | 2020-01-28 02:00 | NUR ---
Report given to Mckayla HUFF.
--- NOTE | 2020-01-28 03:01 | NUR ---
Followed up with [facility] ambulance, [facility]ate/W [facility]. Ambulance nearby according to her, will be here "shortly".
--- NOTE | 2020-01-28 03:31 | NUR ---
Gave report to Sarah DORAN. Patient transferred from ER bed to [facility] with no issues. Left ER in stable condition.
== END 2020-01-28 03:36 | disposition short-term general hospital (02) ==
LOC: ER 21:23 → EDBD 21:23 → ER 01-28 03:36
DX: G40.909 Epilepsy, unspecified, not intractable, without status epilepticus (principal); G20 Parkinson's disease; Z86.73 Personal history of transient ischemic attack (TIA), and cerebral infarction without residual deficits; E78.5 Hyperlipidemia, unspecified; Z79.82 Long term (current) use of aspirin; Z79.01 Long term (current) use of anticoagulants; D69.6 Thrombocytopenia, unspecified; N28.9 Disorder of kidney and ureter, unspecified; D68.9 Coagulation defect, unspecified
CPT/HCPCS: 36415; 70450; 71045; 80048; 80076; 80307; 82542; 85025; 85730; 87426; 93005; 96374; 96375; 99285; J1953; J2060; J7060; A4663; G0480

== ENCOUNTER 2021-05-20 18:29 | Emergency (ER) | payer MEDICAID, OTHER ==
[~2021-05-20] VITALS: Ht 177.8 cm; Wt 68.0 kg
[~2021-05-20 18:29] MED LIST changes: -MECL-182 PO; +MECL-225 PO
[2021-05-20 19:25] LABS: HEMATOCRIT 44.2 % (36.7-47.1); MEAN CORPUSCULAR HEMOGLOBIN 32.9 uug (23.8-33.4); MEAN CORPUSCULAR VOLUME 95.8 fL (73.0-96.2); PLATELET COUNT (AUTO) 147 K/uL (152-348)
[2021-05-20 19:30] LABS: CREATININE 1.5 mg/dL (0.6-1.3); POTASSIUM 4.5 mmol/L (3.5-5.1)
[2021-05-20 19:36] LABS: BILIRUBIN,TOTAL 0.6 mg/dL (0.2-1.0); TOTAL PROTEIN, SERUM 7.8 g/dL (6.4-8.2)
[2021-05-20 20:17] VITALS: BP 123/65
--- NOTE | 2021-05-20 20:17 | NUR ---
Patient discharged to home in stable condition. Written and verbal after care instructions given. Patient verbalizes understanding of instructions. Stressed follow up or return to ER for worsening s/s. Patient out of ER with steady gait, no acute signs of distress, VSS, all belongings taken, pt provided with lab and xray results.
== END 2021-05-20 20:18 ==
LOC: ER 18:31
DX: N28.9 Disorder of kidney and ureter, unspecified (principal); G20 Parkinson's disease; G40.909 Epilepsy, unspecified, not intractable, without status epilepticus; Z79.899 Other long term (current) drug therapy; Z86.73 Personal history of transient ischemic attack (TIA), and cerebral infarction without residual deficits; E78.5 Hyperlipidemia, unspecified; Z91.011 Allergy to milk products
CPT/HCPCS: 36415; 71045; 85025; A4663